=== PATIENT | male | born 1950 | race Caucasian/White ===

== ENCOUNTER 2021-11-24 19:45 | Emergency (ER) | payer OTHER, SELFPAY ==
--- NOTE | 2021-11-24 19:53 | XRR_ITS ---
PROCEDURE INFORMATION: Exam: XR Chest Exam date and time: 11/24/2021 7:53 PM Age: 71 years old Clinical indication: Dyspnea; Additional info: SOB TECHNIQUE: Imaging protocol: XR of the chest. Views: 1 view. COMPARISON: CT Abdomen/Pelvis Renal [id number] 05/10/2016 6:17 PM FINDINGS: Lungs: A few subtle small bilateral peripheral strandy or patchy ground-glass opacities. Pleural spaces: No significant costophrenic angle blunting. No pneumothorax. Heart/Mediastinum: Heart size is normal. Bones/joints: No acute osseous abnormality. XR/XR chest 1V portable [id number] IMPRESSION: While the lung findings can be seen with Covid 19 pneumonia they are nonspecific and can occur with a variety of infectious and noninfectious processes.
[2021-11-24 19:55] VITALS: BP 100/71; PULSE 101; RESP 22; TEMP 37.4; O2SAT 89; BMI 36.2
--- NOTE | 2021-11-24 20:33 | ECG_ITS ---
[facility] Test Date: 2021-11-24 Pat Name: Fabien Rob Department: Room: Gender: Male Healthcare Applications Analyst: : 1950 Requested By: Behzad Subramanian Order Number: [id number] Reading MD: EMIR PREEZ Measurements Intervals Flasher Rate: 102 P: -6 DE: 138 QRS: -63 QRSD: 105 T: 46 QT: 330 QTc: 431 Interpretive Statements SINUS TACHYCARDIA LEFT AXIS DEVIATION [QRS AXIS < -30] POSSIBLE ANTERIOR MYOCARDIAL INFARCTION , PROBABLY OLD [30 ms Q WAVE IN V3/V4, OR R < 0.2 mV IN V4] No previous ECG available for comparison Electronically Signed On 11-25-2021 19:51:32 [employer] by EMIR PEREZ [id number]
--- NOTE | 2021-11-24 21:37 | W.ED.SOB ---
HPI - SOB/Dyspnea General: Chief Complaint: Shortness of Breath/Dyspnea Stated Complaint: low 02 at home Time Seen by Provider: 11/24/21 21:07 Source: patient Mode of arrival: ambulatory Limitations: no limitations History of Present Illness: HPI Narrative: 71-year-old male who states he been having shortness of breath over the last week with getting much worse over the last 3 days he states he had Covid in early September and is since recovered states he has had some just overall fatigue weakness and dyspnea over the week. States it is much worse with any exertion denies any chest pain denies any cough denies any fevers patient was 88% here on room air denies any vomiting or diarrhea. Associated symptoms: Deny abdominal pain, chest pain, fever(s), nausea or vomiting Review of Systems Const: Denies: fever(s), chills, body aches or change in appetite Eyes: Denies: blurry vision or eye discomfort ENMT: Denies: throat pain or dental pain Card: Denies: chest pain Resp: Reports: dyspnea GI: Denies: abdominal pain, nausea, vomiting or diarrhea : Denies: dysuria Musc: Denies: neck pain or back pain Skin/Breast: Denies: rash Neuro: Denies: headache(s) Psych: Denies: depression Neel/Lymph: Denies: easy bruising All/Imm: Denies: urticaria Physical Exam Const: COMMON NORMALS: no acute distress, patient oriented x3 and healthy appearing HENMT: COMMON NORMALS: normocephalic and atraumatic HEAD & SCALP: normocephalic and atraumatic Eye: COMMON NORMALS: Equal, round and reactive pupils present and EOMs intact bilaterally PUPIL: Yes Equal, round and reactive pupils present Neck/C-Spine: COMMON NORMALS: full ROM and supple Chest: COMMONS NORMALS: normal inspection of the chest and normal palpation of entire chest wall Resp: COMMON NORMALS: normal respiratory effort, No retractions and No use of accessory muscles AUSCULTATION: rales Cardio: COMMON NORMALS: regular rate, regular rhythm and No murmurs present (Cardio) RATE: regular rate RHYTHM: regular rhythm GI: COMMON NORMALS: Normal to inspection, nondistended, normoactive bowel sounds present, Soft to palpation, non-tender and no masses PALPATION: Yes Soft to palpation Extremity: COMMON NORMALS: normal to inspection and full ROM Neuro: COMMON NORMALS: patient oriented x3, moves all extremities and no focal motor deficits Psych: COMMON NORMALS: mental status grossly normal, Normal thought process present and cooperative THOUGHT PROCESS: Normal thought process present Skin: COMMON NORMALS: no rashes or lesions noted and no wounds GENERAL SKIN EXAM: no rashes or lesions noted Course Vital Signs: Vital signs: Vital Signs Temperature 99.3 F 11/24/21 19:55 Pulse Rate 94 11/24/21 22:50 Respiratory Rate 16 11/24/21 22:45 Blood Pressure 100/71 11/24/21 19:55 Pulse Oximetry 90 11/24/21 22:45 MDM - SOB/Dyspnea Medical Decision Making Patient presents here with dyspnea likely Covid related we will start him on antibiotics x-ray does show pneumonia could be post Covid pneumonia no signs of blood clot. Place him on 2 L at oxygen at home and doxycycline he is to follow-up his PCP and return if worsening he understands agrees to plan. Lab Data : 11/24/21 21:40 11/24/21 21:40 Labs/Radiology: Radiology Impressions Chest X-Ray 11/24/21 19:53 IMPRESSION: While the lung findings can be seen with Covid 19 pneumonia they are nonspecific and can occur with a variety of infectious and noninfectious processes. Chest CTA 11/24/21 22:06 IMPRESSION: 1. No evidence of pulmonary embolism. 2. Scattered mild bilateral patchy multifocal ground-glass opacities. Findings are consistent with commonly reported imaging features of Covid-19 pneumonia. Other processes such as influenza pneumonia, organizing pneumonia, drug toxicity and connective tissue disease can have a similar appearance. 3. Atherosclerotic vascular disease including coronary artery disease. Laboratory Results WBC 5.8 10^3/uL (4.0-10.0) 11/24/21 21:40 RBC 5.65 10^6/uL (4.1-5.3) H 11/24/21 21:40 Hgb 16.7 g/dL (11.7-16.6) H 11/24/21 21:40 Hct 49.9 % (42.0-52.0) 11/24/21 21:40 MCV 88.3 fl (80-94) 11/24/21 21:40 MCH 29.6 pg (28.0-34.0) 11/24/21 21:40 MCHC 33.5 g/dL (30.0-36.0) 11/24/21 21:40 RDW 13.2 % (12.1-15.1) 11/24/21 21:40 Plt Count 177 10^3/cmm (130-400) 11/24/21 21:40 MPV 11.1 fL (7.4-10.4) H 11/24/21 21:40 Neut % (Auto) 75.9 % 11/24/21 21:40 Lymph % (Auto) 13.6 % 11/24/21 21:40 Hickman % (Auto) 9.7 % 11/24/21 21:40 Eos % (Auto) 0.2 % 11/24/21 21:40 Baso % (Auto) 0.3 % 11/24/21 21:40 Neut # (Auto) 4.39 10^3/uL (1.8-7.7) 11/24/21 21:40 Lymph # (Auto) 0.8 10^3/uL (0.8-4.8) 11/24/21 21:40 Hickman # (Auto) 0.6 10^3/uL (0.2-0.9) 11/24/21 21:40 Eos # (Auto) 0.0 10^3/uL (0.0-0.8) 11/24/21 21:40 Baso # (Auto) 0.0 10^3/uL (0.0-0.1) 11/24/21 21:40 Nucleated RBC % (auto) 0 % 11/24/21 21:40 Nucleated RBCs # 0.0 /100WBC 11/24/21 21:40 PT 13.60 SECONDS (12.1-14.9) 11/24/21 21:40 INR 1.01 (0.8-1.2) 11/24/21 21:40 D-Dimer 1.05 ug/mIFEU (0-0.59) H 11/24/21 21:40 Sodium 131 mmol/L (136-145) L 11/24/21 21:40 Potassium 3.4 mmol/L (3.5-5.1) L 11/24/21 21:40 Chloride 88 mmol/L (98-107) L 11/24/21 21:40 Carbon Dioxide 29 mmol/L (22-29) 11/24/21 21:40 Anion Gap 17.4 (5-19) 11/24/21 21:40 BUN 23 mg/dL (8-23) 11/24/21 21:40 Creatinine 1.5 mg/dL (0.7-1.2) H 11/24/21 21:40 GFR Calculation Not Reportable 11/24/21 21:40 Glucose 119 mg/dL (65-115) H 11/24/21 21:40 Calculated Osmolality 277 mOsm/kg (285-295) L 11/24/21 21:40 Calcium 8.3 mg/dL (8.5-10.5) L 11/24/21 21:40 Total Bilirubin 0.5 mg/dL (0.15-1.2) 11/24/21 21:40 AST 45 U/L (0-40) H 11/24/21 21:40 ALT 41 U/L (0-41) 11/24/21 21:40 Alkaline Phosphatase 62 IU/L (40-130) 11/24/21 21:40 NT-Pro-B Natriuret Pep 922 pg/mL (0-125) H 11/24/21 21:40 Total Protein 7.7 g/dL (6.6-8.7) 11/24/21 21:40 Albumin 4.0 g/dL (3.5-5.2) 11/24/21 21:40 Globulin 3.7 g/dL (1.3-4.6) 11/24/21 21:40 SARS-CoV-2 Ag (Rapid) Negative (Negative) 11/24/21 21:[address] Chest: I personally reviewed and interpreted this imaging study as follows: Radiologist's impression: IMPRESSION: 1. No evidence of pulmonary embolism. 2. Scattered mild bilateral patchy multifocal ground-glass opacities. Findings are consistent with commonly reported imaging features of Covid-19 pneumonia. Other processes such as influenza pneumonia, organizing pneumonia, drug toxicity and connective tissue disease can have a similar appearance. 3. Atherosclerotic vascular disease including coronary artery disease. Discharge Plan Discharge Patient Disposition: Home Clinical Impression: Pneumonia, COVID-19 Condition: Stable Prescriptions: New doxycycline hyclate 100 mg tablet 100 mg PO BID 7 Days Qty: 14 0RF Discharge Orders: Discharge ED (Routine); Ordered 11/24/21 Ordered By: Behzad Subramanian Other Ambulatory Orders: DME: Oxygen (Order) Location: None Selected Ordered By: Behzad Subramanian Referrals: Papo Ramirez DO [Primary Care Provider] - Discharge Diet: Advance as tolerated Discharge Activity: Resume usual activity Patient Instructions: COVID-19 (Coronavirus Disease 2019) (ED) Coding Level of Care Code ED Home Day Care Provider for Chg Fwd Exam Comprehensive
[2021-11-24 21:46] LABS: Basophils % 0.3 %; Eosinophils % 0.2 %; Hematocrit 49.9 % (42.0-52.0); Hemoglobin 16.7 g/dL (11.7-16.6); Lymphocytes # 0.8 10^3/uL (0.8-4.8); Lymphocytes % 13.6 %; Mean Corpuscular HGB Conc 33.5 g/dL (30.0-36.0); Mean Corpuscular Hemoglobin 29.6 pg (28.0-34.0); Mean Corpuscular Volume 88.3 fl (80-94); Mean Platelet Volume 11.1 fL (7.4-10.4); Monocytes # 0.6 10^3/uL (0.2-0.9); Monocytes % 9.7 %; Neutrophils # 4.39 10^3/uL (1.8-7.7); Neutrophils % 75.9 %; Nucleated Red Blood Cells % 0 %; Platelet Count 177 10^3/cmm (130-400); Red Blood Count 5.65 10^6/uL (4.1-5.3); Red Cell Distribution Width 13.2 % (12.1-15.1); White Blood Count 5.8 10^3/uL (4.0-10.0)
[2021-11-24 22:02] LABS: INR 1.01 (0.8-1.2)
[2021-11-24 22:04] LABS: D Dimer 1.05 ug/mIFEU (0-0.59)
[2021-11-24 22:05] LABS: SARS Covid-2 Antigen Negative (Negative)
--- NOTE | 2021-11-24 22:06 | CTR_ITS ---
PROCEDURE INFORMATION: Exam: CTA Chest With Contrast Exam date and time: 11/24/2021 10:06 PM Age: 71 years old Clinical indication: Shortness of breath; Patient HX: C/O SOB x 1 week PT is 6 weeks post covid TECHNIQUE: Imaging protocol: Computed tomographic angiography of the chest with contrast. 3D rendering (Not supervised by radiologist): MIP and/or 3D reconstructed images were created by the technologist. Radiation optimization: All CT scans at this facility use at least one of these dose optimization techniques: automated exposure control; mA and/or kV adjustment per patient size (includes targeted exams where dose is matched to clinical indication); or iterative reconstruction. Contrast material: VISI 320; Contrast volume: 66 ml; Contrast route: INTRAVENOUS (IV); COMPARISON: CR (CHEST, ) 11/24/2021 9:27 PM RADIATION DOSE METRICS: Total DLP (mGy-cm): 535.53 FINDINGS: Pulmonary arteries: No vascular intraluminal filling defects to suggest pulmonary embolism. Aorta: Atherosclerotic tortuosity of the thoracic aorta. No aortic aneurysm or dissection. Lungs: Scattered mild bilateral patchy multifocal ground-glass opacities. Small peripheral left upper lobe calcified granuloma. Incidental small 1.6 cm posterosuperior left hemithorax subcutaneous cyst. Pleural spaces: Unremarkable. No pneumothorax. No pleural effusion. Heart: Heart size is normal. Mild coronary artery calcifications. Lymph nodes: No enlarged lymph nodes. Bones/joints: Thoracic spondylosis and degenerative bony changes. Soft tissues: See Lungs finding. CT/CT angio chest PE protcl [id number] IMPRESSION: 1. No evidence of pulmonary embolism. 2. Scattered mild bilateral patchy multifocal ground-glass opacities. Findings are consistent with commonly reported imaging features of Covid-19 pneumonia. Other processes such as influenza pneumonia, organizing pneumonia, drug toxicity and connective tissue disease can have a similar appearance. 3. Atherosclerotic vascular disease including coronary artery disease.
[2021-11-24 22:11] LABS: Slide Review Slide Review Perform
[2021-11-24 22:18] LABS: Alanine Aminotransferase 41 U/L (0-41); Alkaline Phosphatase 62 IU/L (40-130); Anion Gap 17.4 (5-19); Aspartate Amino Transferase 45 U/L (0-40); Blood Urea Nitrogen 23 mg/dL (8-23); Calcium 8.3 mg/dL (8.5-10.5); Carbon Dioxide 29 mmol/L (22-29); Chloride 88 mmol/L (98-107); Globulin 3.7 g/dL (1.3-4.6); Glucose 119 mg/dL (65-115); NT Pro B Type Natriuretic Pept 922 pg/mL (0-125); Osmolality Calculated 277 mOsm/kg (285-295); Potassium 3.4 mmol/L (3.5-5.1); Sodium 131 mmol/L (136-145); Total Bilirubin 0.5 mg/dL (0.15-1.2); Total Protein 7.7 g/dL (6.6-8.7)
[2021-11-24 22:25] VITALS: O2SAT 88; O2SAT 89
[2021-11-24 22:45] VITALS: PULSE 96; RESP 16; O2SAT 90
[2021-11-24] MEDS: ipratropium-albuterol 3 mL Neb INHALATION (22:45)
[2021-11-24] MEDS: iodixanol 320 mg/mL 100mL Btl IV (22:49)
[2021-11-24 22:50] VITALS: PULSE 94
[2021-11-25] MEDS: dexamethasone 10 mg/mL INJ IVP (00:08)
[2021-11-25] MEDS: ketorolac 30 mg/mL INJ 15 MG IVP (00:08)
[2021-11-25 00:09] VITALS: BP 116/74; PULSE 84; RESP 18; O2SAT 93
[2021-12-01 16:00] LABS: ABG PCO2 40.1 mmHg (35-45); ABG PH Result 7.45 (7.35-7.45); Arterial Blood Gas Hematocrit 50.1 % (42-52); Base Excess ABG 3.6 mmol/L (-2.0-2.0); Blood Gas Allen Test Pos; Blood Gas Sample Site Radial, right; Blood Gas Sample Type Arterial; Carboxyhemoglobin 0.5 %THgb (0.4-20.1); HCO3 ABG 27.9 mmol/L (22-26); HGB O2 Sat 96.2 % (95-100); Methemoglobin 0.7 % (0.4-1.5); Oxygen Device NC; PO2 ABG 94.7 mmHg (80.0-100.0); Total Hemoglobin 16.3 g/dL (14-18)
== END 2021-11-25 00:10 | disposition home or self-care (01) ==
PROVIDERS: Emergency Provider Emergency Medicine; PCP Emergency Medicine Emergency Medical Services
DX: U07.1 COVID-19 (principal); J12.82 Pneumonia due to coronavirus disease 2019
CPT/HCPCS: 36600; 71045; 71275; 80053; 82805; 83880; 85025; 85378; 85610; 87426; 93005; 94640; 96374; 96375; 99283; J1100; J1885; Q9967

== ENCOUNTER 2021-11-26 21:16 | Inpatient (IN) | payer OTHER, SELFPAY ==
--- NOTE | 2021-11-26 21:18 | XRR_ITS ---
PROCEDURE INFORMATION: Exam: XR Chest Exam date and time: 11/26/2021 9:18 PM Age: 71 years old Clinical indication: Shortness of breath; Additional info: SOB TECHNIQUE: Imaging protocol: XR of the chest. Views: 1 view. COMPARISON: CR (CHEST, ) 11/24/2021 9:27 PM FINDINGS: Lungs: Mild anterior segment right upper lobe pneumonia with [id number] left mid lung field pneumonia. Pleural spaces: Unremarkable. No pleural effusion. No pneumothorax. Heart/Mediastinum: Unremarkable. No cardiomegaly. Bones/joints: Unremarkable. XR/XR chest 1V portable [id number] IMPRESSION: Mild anterior segment right upper lobe pneumonia with [id number]-lxeaqkjg left mid lung field pneumonia.
[2021-11-26 21:31] VITALS: BP 172/74; PULSE 89; RESP 22; TEMP 37.8; O2SAT 86
[2021-11-26] MEDS: dexamethasone 10 mg/mL INJ IVP (21:59)
--- NOTE | 2021-11-26 22:04 | ED_ITS ---
HPI - COVID General: Chief Complaint: COVID symptoms Stated Complaint: SOB on Oxygen Time Seen by Provider: 11/26/21 21:39 Source: patient Mode of arrival: ambulatory Limitations: no limitations Triage information: Has fever, cough or shortness of breath . No known COVID + exposure last 14 days History of Present Illness: 71-year-old male who states that he had Covid the first week of October I did see him 2 days ago for increasing cough fever and shortness of breath. X-ray is consistent with a pneumonia likely Covid pneumonia also get a CT that showed the same no signs of pulmonary embolism. I did start him on 2 L of oxygen along with antibiotics he states that he had increasing shortness of breath especially throughout the day today he has had to increase his oxygen up to 5 L. He is requiring 5 L here as well. COVID 19 common symptoms: positive fever(s), chills, non-productive cough, dyspnea and body aches; negative headache(s), throat pain, nausea, vomiting or diarrhea COVID 19 other sytmptoms: negative chest pain COVID Results: SARS-CoV-2 Antigen (Rapid) Negative (Negative) 11/24/21 21:40 11/24/21 Review of Systems Const: Reports: fever(s), chills and body aches; Denies: change in appetite Eyes: Denies: blurry vision or eye discomfort ENMT: Denies: throat pain or dental pain Card: Denies: chest pain Resp: Reports: dyspnea and non-productive cough GI: Denies: abdominal pain, nausea, vomiting or diarrhea : Denies: dysuria Musc: Denies: neck pain or back pain Skin/Breast: Denies: rash Neuro: Denies: headache(s) Psych: Denies: depression Neel/Lymph: Denies: easy bruising All/Imm: Denies: urticaria PFSH ED PFSH: Medical History (Updated 11/27/21 @ 01:53 by Behzad Subramanian MD) Pneumonia Social History (Updated 11/26/21 @ 22:06 by Behzad Subramanian MD) Substance/Drug Use: never Physical Exam Const: COMMON NORMALS: patient oriented x3 and healthy appearing GENERAL APPEARANCE: in distress and ill appearing HENMT: COMMON NORMALS: normocephalic and atraumatic HEAD & SCALP: normocephalic and atraumatic Eye: COMMON NORMALS: Equal, round and reactive pupils present and EOMs intact bilaterally PUPIL: Yes Equal, round and reactive pupils present Neck/C-Spine: COMMON NORMALS: full ROM and supple Chest: COMMONS NORMALS: normal inspection of the chest and normal palpation of entire chest wall Resp: EFFORT & INSPECTION: Yes tachypneic, Yes respiratory distress, Yes labored and Yes audible wheezes Cardio: COMMON NORMALS: regular rate, regular rhythm and No murmurs present (Cardio) RATE: regular rate RHYTHM: regular rhythm GI: COMMON NORMALS: Normal to inspection, nondistended, normoactive bowel s ounds present, Soft to palpation, non-tender and no masses PALPATION: Yes Soft to palpation Extremity: COMMON NORMALS: normal to inspection and full ROM Neuro: COMMON NORMALS: patient oriented x3, moves all extremities and no focal motor deficits Psych: COMMON NORMALS: mental status grossly normal, Normal thought process present and cooperative THOUGHT PROCESS: Normal thought process present Skin: COMMON NORMALS: no rashes or lesions noted and no wounds GENERAL SKIN EXAM: no rashes or lesions noted Course Vital Signs: Vital signs: Vital Signs Temperature 100.1 F H 11/26/21 21:31 Pulse Rate 89 11/26/21 21:31 Respiratory Rate 22 H 11/26/21 21:31 Blood Pressure 172/74 11/26/21 21:31 Pulse Oximetry 86 L 11/26/21 21:31 MDM - COVID Medical Decision Making Patient presents here with shortness of breath x-ray shows pneumonia he did have Covid earlier in the month roughly 4 weeks ago. I did see him 2 days ago and placed him on 2 L of oxygen at home and doxycycline he is worse and is requiring 5 L currently spoke to hospitalist will admit on IV antibiotics. Lab Data : 11/26/21 21:50 11/26/21 22:35 Radiology Impressions Chest X-Ray 11/26/21 21:18 IMPRESSION: Mild anterior segment right upper lobe pneumonia with iptj-[id number] left mid lung field pneumonia. Laboratory Results WBC 8.1 10^3/uL (4.0-10.0) 11/26/21 21:50 RBC 5.33 10^6/uL (4.1-5.3) H 11/26/21 21:50 Hgb 15.6 g/dL (11.7-16.6) 11/26/21 21:50 Hct 47.4 % (42.0-52.0) 11/26/21 21:50 MCV 88.9 fl (80-94) 11/26/21 21:50 MCH 29.3 pg (28.0-34.0) 11/26/21 21:50 MCHC 32.9 g/dL (30.0-36.0) 11/26/21 21:50 RDW 13.2 % (12.1-15.1) 11/26/21 21:50 Plt Count 222 10^3/cmm (130-400) 11/26/21 21:50 MPV 11.3 fL (7.4-10.4) H 11/26/21 21:50 Neut % (Auto) 86.3 % 11/26/21 21:50 Lymph % (Auto) 8.5 % 11/26/21 21:50 Mcculloch % (Auto) 4.8 % 11/26/21 21:50 Eos % (Auto) 0.0 % 11/26/21 21:50 Baso % (Auto) 0.2 % 11/26/21 21:50 Neut # (Auto) 6.98 10^3/uL (1.8-7.7) 11/26/21 21:50 Lymph # (Auto) 0.7 10^3/uL (0.8-4.8) L 11/26/21 21:50 Mcculloch # (Auto) 0.4 10^3/uL (0.2-0.9) 11/26/21 21:50 Eos # (Auto) 0.0 10^3/uL (0.0-0.8) 11/26/21 21:50 Baso # (Auto) 0.0 10^3/uL (0.0-0.1) 11/26/21 21:50 Nucleated RBC % (auto) 0 % 11/26/21 21:50 Nucleated RBCs # 0.0 /100WBC 11/26/21 21:50 D-Dimer Cancelled 11/26/21 21:50 Sodium 133 mmol/L (136-145) L 11/26/21 22:35 Potassium 3.2 mmol/L (3.5-5.1) L 11/26/21 22:35 Chloride 90 mmol/L (98-107) L 11/26/21 22:35 Carbon Dioxide 28 mmol/L (22-29) 11/26/21 22:35 Anion Gap 18.2 (5-19) 11/26/21 22:35 BUN 25 mg/dL (8-23) H 11/26/21 22:35 Creatinine 1.2 mg/dL (0.7-1.2) 11/26/21 22:35 GFR Calculation Not Reportable 11/26/21 22:35 Glucose 124 mg/dL (65-115) H 11/26/21 22:35 Calculated Osmolality 282 mOsm/kg (285-295) L 11/26/21 22:35 Lactic Acid 1.5 mmol/L (0.5-2.2) 11/26/21 22:52 Calcium 8.4 mg/dL (8.5-10.5) L 11/26/21 22:35 Total Bilirubin 0.6 mg/dL (0.15-1.2) 11/26/21 22:35 AST 36 U/L (0-40) 11/26/21 22:35 ALT 29 U/L (0-41) 11/26/21 22:35 Alkaline Phosphatase 57 IU/L (40-130) 11/26/21 22:35 C-Reactive Protein 53.5 mg/L (0.0-4.9) H 11/26/21 22:35 NT-Pro-B Natriuret Pep 211 pg/mL (0-125) H 11/26/21 22:35 Total Protein 7.3 g/dL (6.6-8.7) 11/26/21 22:35 Albumin 3.6 g/dL (3.5-5.2) 11/26/21 22:35 Globulin 3.7 g/dL (1.3-4.6) 11/26/21 22:35 Procalcitonin 0.08 ng/mL (0-0.5) 11/26/21 22:35 SARS-CoV-2 Antigen (Rapid) Negative (Negative) 11/24/21 21:40 11/24/21 Discharge Plan Discharge Patient Disposition: Admitted As Inpatient Clinical Impression: Pneumonia Condition: Stable Coding Level of Care Code ED Valve Inspector for Chg Fwd Exam Comprehensive
[2021-11-26 22:08] LABS: Basophils % 0.2 %; Hematocrit 47.4 % (42.0-52.0); Hemoglobin 15.6 g/dL (11.7-16.6); Lymphocytes # 0.7 10^3/uL (0.8-4.8); Lymphocytes % 8.5 %; Mean Corpuscular HGB Conc 32.9 g/dL (30.0-36.0); Mean Corpuscular Hemoglobin 29.3 pg (28.0-34.0); Mean Corpuscular Volume 88.9 fl (80-94); Mean Platelet Volume 11.3 fL (7.4-10.4); Monocytes # 0.4 10^3/uL (0.2-0.9); Monocytes % 4.8 %; Neutrophils # 6.98 10^3/uL (1.8-7.7); Neutrophils % 86.3 %; Nucleated Red Blood Cells % 0 %; Platelet Count 222 10^3/cmm (130-400); Red Blood Count 5.33 10^6/uL (4.1-5.3); Red Cell Distribution Width 13.2 % (12.1-15.1); White Blood Count 8.1 10^3/uL (4.0-10.0)
[2021-11-26 22:20] VITALS: PULSE 84; RESP 33; O2SAT 95
[2021-11-26 23:12] LABS: NT Pro B Type Natriuretic Pept 211 pg/mL (0-125); Procalcitonin 0.08 ng/mL (0-0.5)
[2021-11-26 23:23] LABS: Alanine Aminotransferase 29 U/L (0-41); Albumin Level 3.6 g/dL (3.5-5.2); Alkaline Phosphatase 57 IU/L (40-130); Anion Gap 18.2 (5-19); Aspartate Amino Transferase 36 U/L (0-40); Blood Urea Nitrogen 25 mg/dL (8-23); C Reactive Protein 53.5 mg/L (0.0-4.9); Calcium 8.4 mg/dL (8.5-10.5); Carbon Dioxide 28 mmol/L (22-29); Chloride 90 mmol/L (98-107); Globulin 3.7 g/dL (1.3-4.6); Glucose 124 mg/dL (65-115); Osmolality Calculated 282 mOsm/kg (285-295); Potassium 3.2 mmol/L (3.5-5.1); Sodium 133 mmol/L (136-145); Total Bilirubin 0.6 mg/dL (0.15-1.2); Total Protein 7.3 g/dL (6.6-8.7)
[2021-11-26 23:25] LABS: Lactic Sepsis W/Reflex 1.5 mmol/L (0.5-2.2)
[2021-11-26] MEDS: cefTRIAXone 1,000 MG in sodium chloride 0.9% (plus) 50 ML 100 MG IV (23:38)
[2021-11-26] MEDS: azithromycin 500 MG in sodium chloride 0.9% 250 ML 250 MG IV (23:38)
[2021-11-27] VITALS (18 sets, daily range): BP systolic 99–134; BP diastolic 59–93; PULSE 63–80; RESP 17–27; TEMP 36.6; O2SAT 86–93
--- NOTE | 2021-11-27 02:36 | P.HP_ITS ---
Providers/Chief Complaint Primary Care Provider: Papo Ramirez DO Chief Complaint: SOB on Oxygen History of Present Illness Fabien Rob is a 71 year old male with no significant past medical history, he was recently diagnosed with Covid in the month of October and was recently seen in ER on 24 November for shortness of breath at that time he was discharged on 2 L home oxygen with oral doxycycline, came in today with chief complaint of Worsening shortness of breath, fever, chills, nonproductive cough, overall not feeling well, patient is poor historian, and is also hard of hearing Because of this history taking has been slightly difficult. When he came today in the ER his supplemental oxygen requirement was close to 5 L, in the ER he was also febrile with noted T-max 100.1, he was tachypneic. He was worked up for above-mentioned complaint: Pertinent imaging studies: X-ray chest: Mild anterior segment right upper lobe pneumonia with ioyt-sb-owstomlj left mid lung field pneumonia. Recent CTA chest: Has failed to show any pulmonary embolism, Scattered mild bilateral patchy multifocal ground-glass opacities. Pertinent labs: WBC 8.1, H&H 15.6 / 47.4 , plt : 222 , sodium 133, serum potassium 3.2, BUN and serum creatinine 25 / 1.2 , procalcitonin 0.08. , CRP 53.5, proBNP 211 Patient was given ceftriaxone azithromycin , dexamethasone as well as duo nebs in the ER. Review of Systems General: Reports: 10 or more systems reviewed and unremarkable except in HPI and below Const: Denies: diaphoresis Card: Denies: palpitations, edema, swelling of feet/ankles or leg pain with exertion Resp: Denies: wheezing or pain on inspiration GI: Denies: abdominal pain, nausea, vomiting, diarrhea or constipation : Denies: flank pain or difficulty urinating Musc: Denies: back pain, extremity pain or extremity swelling Neuro: Denies: headache(s), difficulty walking or confusion Medications/Allergies Home Medications Medication Instructions Recorded Confirmed Last Taken Type doxycycline hyclate 100 mg tablet 100 mg PO BID 7 Days #14 tab 11/24/21 Unknown Rx Allergies Allergy/AdvReac Type Severity Reaction Status Date / Time No Known Allergies Allergy Verified 11/24/21 19:55 PFSH Acute PFSH: Medical History Pneumonia Social History Substance/Drug Use: never Vitals/I&O/Wt Last Vital Signs Temp 100.1 F H 11/26/21 21:31 Pulse 89 11/26/21 21:31 Resp 22 H 11/26/21 21:31 BP 172/74 11/26/21 21:31 Pulse Ox 86 L 11/26/21 21:31 Weight last 48 hrs Weight 113.398 kg Physical Exam Const: COMMON NORMALS: patient oriented x3 HENMT: COMMON NORMALS: normocephalic and atraumatic HEAD & SCALP: normocephalic and atraumatic EXTERNAL EAR: Yes external ears normal Eye: COMMON NORMALS: no scleral icterus GENERAL EYE: appearance normal, both eyes and all related structures Chest: COMMONS NORMALS: normal inspection of the chest and normal palpation of entire chest wall CHEST: Yes Symmetrical chest wall rise Resp: COMMON NORMALS: normal respiratory effort, No retractions, No use of accessory muscles and clear to auscultation bilaterally EFFORT & INSPECTION: Yes symmetric chest movement AUSCULTATION: clear to auscultation bilaterally Cardio: COMMON NORMALS: regular rate, regular rhythm, S1 normal heart sound present, S2 normal heart sound present, No gallops present (Cardio), No murmurs present (Cardio), No rub (Cardio) and Peripheral pulses 2+ throughout RATE: regular rate RHYTHM: regular rhythm HEART SOUNDS: S1 normal heart sound present and S2 normal heart sound present PERIPHERAL PULSES: Peripheral pulses 2+ throughout GI: COMMON NORMALS: Normal to inspection, nondistended, normoactive bowel sounds present, Soft to palpation, non-tender, No hepatosplenomegaly present and no masses AUSCULTATION: Yes normoactive bowel sounds PALPATION: Yes Soft to palpation and Yes No hepatosplenomegaly present RECTAL EXAM: Yes deferred Extremity: COMMON NORMALS: no clubbing, cyanosis or edema and no pedal edema Neuro: COMMON NORMALS: patient oriented x3 Data : 11/26/21 21:50 11/26/21 22:35 Micro: Microbiology 11/26/21 22:10 Blood Culture - Preliminary Blood SPECIMEN COLLECTED 11/26/21 22:22 Blood Culture - Preliminary Blood SPECIMEN COLLECTED A&P Assessment and plan (1) Pneumonia: Status: Acute (2) Hypoxia: Status: Acute (3) Hypokalemia: Status: Acute Plan Assessment: #Pneumonia #Hypokalemia #Hypoxia secondary to pneumonia Plan : Follow blood culture, sputum culture Monitor x-ray chest Monitor ABG Supplemental oxygen as needed Continue cefepime Duo nebs Bacterial antigen panel Urine Legionella antigen Lovenox for DVT prophylaxis CODE STATUS: Full code Attestations Medical Necessity Statement*: Patient needs to be in hospital for management of pneumonia. Anticipated length of stay greater than 2 midnights. Coding Level of Care Code Acute Industrial Real Estate Agent for [facility] Alyd Diagnoses Pneumonia J18.9 Hypoxia R09.02 Hypokalemia E87.6
[2021-11-27] MEDS: cefepime 2,000 MG in sodium chloride 0.9% (plus) 50 ML 100 MG IV ×3 (03:00→17:58)
[2021-11-27] MEDS: enoxaparin 40 mg/0.4 mL Syringe SUBCUT (03:00)
[2021-11-27 04:19] LABS: Hemoglobin 14.3 g/dL (11.7-16.6); Lymphocytes # 0.5 10^3/uL (0.8-4.8); Lymphocytes % 6.4 %; Mean Corpuscular HGB Conc 32.5 g/dL (30.0-36.0); Mean Corpuscular Hemoglobin 29.1 pg (28.0-34.0); Mean Corpuscular Volume 89.6 fl (80-94); Monocytes # 0.3 10^3/uL (0.2-0.9); Neutrophils # 6.44 10^3/uL (1.8-7.7); Neutrophils % 89.2 %; Nucleated Red Blood Cells % 0 %; Platelet Count 204 10^3/cmm (130-400); Red Blood Count 4.91 10^6/uL (4.1-5.3); Red Cell Distribution Width 13.2 % (12.1-15.1); White Blood Count 7.2 10^3/uL (4.0-10.0)
[2021-11-27 04:53] LABS: Anion Gap 19.3 (5-19); Blood Urea Nitrogen 26 mg/dL (8-23); Calcium 8.8 mg/dL (8.5-10.5); Carbon Dioxide 26 mmol/L (22-29); Chloride 92 mmol/L (98-107); Glucose 160 mg/dL (65-115); Osmolality Calculated 286 mOsm/kg (285-295); Potassium 3.3 mmol/L (3.5-5.1); Sodium 134 mmol/L (136-145)
[2021-11-27 06:44] LABS: Slide Review Slide Review Perform
[2021-11-27] MEDS: predniSONE 20 mg Tablet 40 MG PO (08:03)
[2021-11-27] MEDS: vancomycin 1,000 MG in sodium chloride 0.9% 250 ML 250 MG IV ×2 (09:01→21:16)
[2021-11-27 09:23] LABS: ABG PCO2 43.3 mmHg (35-45); ABG PH Result 7.48 (7.35-7.45); Alveolar-Arterial Oxygen Gradi 22.8 mmHg (5-10); Arterial Blood Gas Hematocrit 44.7 % (42-52); Base Excess ABG 7.6 mmol/L (-2.0-2.0); Blood Gas Allen Test Pos; Blood Gas Operator Identificat AMH; Blood Gas Sample Site Radial, right; Blood Gas Sample Type Arterial; Carboxyhemoglobin 0.7 %THgb (0.4-20.1); HCO3 ABG 32.1 mmol/L (22-26); Ionized Calcium Level - ABG 1.1 mmol/L (1.1-1.4); Methemoglobin 0.8 % (0.4-1.5); Oxygen Device NC; Oxygen Saturation ABG 90.3; PO2 ABG 55.9 mmHg (80.0-100.0); Potassium Level - ABG 3.2 mmol/L (3.5-5.0); Total Hemoglobin 14.6 g/dL (14-18)
--- NOTE | 2021-11-27 09:59 | ECG_ITS ---
[facility] Test Date: 2021-11-27 Pat Name: Fabien Rob Department: Room: EDIP Gender: Male Head Greenskeeper: : 1950 Requested By: Behzad Subramanian Order Number: [id number] Tawny MD: Chris Farias M.D. Measurements Intervals [place] Rate: 77 P: 33 IA: 131 QRS: -40 QRSD: 110 T: 22 QT: 379 QTc: 431 Interpretive Statements SINUS RHYTHM LEFT AXIS DEVIATION [QRS AXIS < -30] PATTERN CONSISTENT WITH PULMONARY DISEASE INTERPRETATION BASED ON A DEFAULT AGE OF 40 YEARS Compared to ECG 11/24/2021 20:44:42 Sinus tachycardia no longer present Myocardial infarct finding no longer present Electronically Signed On 11-27-2021 18:36:24 DRUM STENCILER by Chris Farias M.D. [id number]
--- NOTE | 2021-11-27 12:19 | CT_ITS ---
WS: [id number] CT CHEST TECHNIQUE: Noncontrast CT of the chest with coronal and sagittal reformatted images. CLINICAL INFORMATION: pneumonia COMPARISON: CTA November 24, 2021 DLP: 982.[address] scans at [facility] use at least one of these dose optimization techniques: automated e xposure control; mA and/or kV adjustment per patient size (includes targeted exams where dose is matc hed to clinical indication); or iterative reconstruction. FINDINGS:Again seen are patchy bilateral groundglass infiltrates more prominent in the perihilar pratima ons and right greater than left upper lobes. Slight scattered groundglass infiltrates in the lung bas es left greater than right. Infiltrates have progressed compared to previous. No focal consolidation or pleural fluid. Normal caliber thoracic aorta. Aortic calcification. Coronary calcification. No mediastinal or hilar lymphadenopathy. Normal thyroid gland. No axillary lymphadenopathy. Partially visualized right renal cyst. Adrenal glands are normal. Normal GE junction. Hypertrophic ch anges thoracic spine. CT/CT chest wo con [id number] IMPRESSION: 1. Diffuse bilateral hazy groundglass infiltrates more prominent in the perihi lar regions bilaterally have progressed compared to November 24, 2021. 2. No mediastinal or hilar lymphadenopathy. Mild perihilar bronchovascular thi ckening. 3. No other significant changes compared to previous.
--- NOTE | 2021-11-27 17:40 | PC.NURSE ---
Patient arrived from ER via stretcher. Patient is alert and oriented x4. VS are all stable. Patient educated front end developer chamberlain use, safety measures, and plan of care. Nurse will continue to monitor.
--- NOTE | 2021-11-27 23:41 | PC.NURSE ---
Patient states, I was never diagnosed with COVID. I took a home COVID test and it was positive. When I came to the ER and they tested me, it was negative.
[2021-11-28] VITALS (9 sets, daily range): BP systolic 115–131; BP diastolic 62–75; PULSE 66–94; RESP 18–25; TEMP 36.6–37.1; O2SAT 88–91
[2021-11-28] MEDS: enoxaparin 40 mg/0.4 mL Syringe SUBCUT (01:17)
[2021-11-28] MEDS: cefepime 2,000 MG in sodium chloride 0.9% (plus) 50 ML 100 MG IV ×3 (01:18→18:11)
[2021-11-28 03:41] LABS: Basophils % 0.1 %; Hematocrit 47.6 % (42.0-52.0); Hemoglobin 15.4 g/dL (11.7-16.6); Lymphocytes # 0.7 10^3/uL (0.8-4.8); Lymphocytes % 7.1 %; Mean Corpuscular HGB Conc 32.4 g/dL (30.0-36.0); Mean Corpuscular Hemoglobin 29.3 pg (28.0-34.0); Mean Corpuscular Volume 90.5 fl (80-94); Mean Platelet Volume 12.5 fL (7.4-10.4); Monocytes # 0.5 10^3/uL (0.2-0.9); Monocytes % 5.2 %; Neutrophils # 8.28 10^3/uL (1.8-7.7); Neutrophils % 87.1 %; Nucleated Red Blood Cells % 0 %; Platelet Count 185 10^3/cmm (130-400); Red Blood Count 5.26 10^6/uL (4.1-5.3); Red Cell Distribution Width 13.2 % (12.1-15.1); White Blood Count 9.5 10^3/uL (4.0-10.0)
[2021-11-28 07:41] LABS: Blood Urea Nitrogen 23 mg/dL (8-23); Calcium 9.1 mg/dL (8.5-10.5); Carbon Dioxide 24 mmol/L (22-29); Chloride 94 mmol/L (98-107); Glucose 119 mg/dL (65-115); Osmolality Calculated 285 mOsm/kg (285-295); Sodium 135 mmol/L (136-145)
[2021-11-28 07:43] LABS: Anion Gap 20.6 (5-19); Potassium 3.6 mmol/L (3.5-5.1)
[2021-11-28] MEDS: predniSONE 20 mg Tablet 40 MG PO (08:11)
[2021-11-28] MEDS: vancomycin 1,000 MG in sodium chloride 0.9% 250 ML 250 MG IV (08:12)
--- NOTE | 2021-11-28 09:35 | PC.CHAP ---
Pastoral Care Encounter/Spiritual Assessment Type of Contact [] Declined quill layer visit [] Patient/Family/Request visit [] Outpatient visit [] Follow-up visit [] Physician referral [] Code/Alert [x] Routine visit [] Staff referral [] Actively dying [x] Patient sleeping [] Family support [] [] Out of room [] Palliative care [] [] Receiving care in room [] Pre-surgical visit [] Trauma [] Long length of stay [] ICU visit [] Other: Relational/Emotional Strength [] Patient feels connected with others/family/visitors/staff [] Distress [] Loneliness/isolation [] Abandonment Spirituality of Patient [] Person of Elise [] Attends Methodist of their Elise [] Believes in Prayer [] Reads Bible or Roman Catholic materials [] There are Spiritual issues to be addressed 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 Interventions [x] Prayer [] Active listening [] Non-anxious presence [] Spiritual/emotional support [] Crisis/trauma care [] Spiritual counseling [] Bereavement support [] Provided bereavement packet [] Provided Bible/devotional materials [] Provided toy/stuffed animal, coloring book to patient or family member [] Provided Communion [] Anointing/[place] [] Salvation [x] Completed spiritual assessment [] Other: Impact on Illness or Injury [] Angry [] Fearful [] Anxious [] Often cries [] Exhaustion [] Unable to work [] Unable to attend restorationist [] Unable to walk/stand [] Unable to read [] Unable to drive [] Unable to eat/drink [] Unable to sleep [] Unable to be with family [] Patient intubated [] Other: Summary Time spent with patient
--- NOTE | 2021-11-28 10:39 | P.PN_ITS ---
Subjective Subjective: Interval history: Saturating well on 6 L nasal cannula, no active chest pain or shortness of breath He was able to get out of bed and go to the bathroom Requested PT evaluation, patient is stating that his wanted to take care of him at home, caser shoe parts updated to see if he would qualify for home health services Vitals/I&O/Wt Last Vital Signs Temp 97.8 F 11/28/21 07:18 Pulse 85 11/28/21 10:18 Resp 20 H 11/28/21 10:18 BP 115/62 11/28/21 07:18 Pulse Ox 91 11/28/21 10:18 11/27/21 11/28/21 11/28/21 22:59 06:59 14:59 Intake Total 300 / 600 150 / 750 250 / 250 Output Total 250 / 250 Balance 300 / 600 -100 / 500 250 / 250 Weight last 48 hrs Weight 116.483 kg Weight 113.398 kg Physical Exam Narrative: EXAM NARRATIVE: Patient was sitting in his bed S1, S2 Abdomen soft and distended Nonfocal neuro exam EOMI, PERRLA Doing well on 6 L nasal cannula Data : 11/28/21 02:12 11/28/21 07:12 Micro: Microbiology 11/27/21 11:55 Bacterial Antigens - Final Urine,Clean Catch 11/26/21 22:10 Blood Culture - Preliminary Blood NEGATIVE TO DATE 11/26/21 22:22 Blood Culture - Preliminary Blood NEGATIVE TO DATE 11/27/21 11:55 Legionella Urinary Antigen - Final Urine,Clean Catch 11/27/21 08:40 MRSA Culture - Final Nose A&P Assessment and plan (1) Hypokalemia: Status: Acute (2) Hypoxia: Status: Acute (3) Pneumonia: Status: Acute (4) COVID-19: Status: Acute Plan Acute on chronic hypoxia Superimposed bacterial infection Recent COVID-[address] chest showing progression of groundglass infiltrate hilar lymphadenopathy We will add IV steroids continue antibiotics PT evaluation today Might need home health services at the time of discharge I will give him low-dose Lasix on daily basis as well along IV steroids Full code Regular diet DVT prophylaxis Lovenox Attestations Medical Necessity Statement*: Discharge tomorrow if stable Time Spent in Patient Care: 15min Coding Level of Care Code Acute Farmworker Bulbs for g Landon Diagnoses Hypokalemia E87.6 Hypoxia R09.02 Pneumonia J18.9 COVID-19 U07.1
[2021-11-28] MEDS: potassium chloride ER 20 mEq Tablet 40 MEQ PO (12:21)
--- NOTE | 2021-11-28 19:39 | PC.NURSE ---
Shift Note Frequent safety and comfort rounds continue. Orders and/or nursing care completed as indicated. Patient monitored for response to intervention and treatment(s). Education provided includes IV solu-medrol, PT eval and treat and oxygen therapy. Patient and/or communications representative verbalizes understanding. Will continue to monitor. and pt stated they are not able to take care of him when he is requiring 6 L of oxygen. is concern that he will easily decompensate. Their home oxygen only goes up to 4 L per statement. She was wondering if we can get him in a convalescent hospital. Pt [facility] a [facility]. Informed Case mgt and doctor regarding their concerns.
[2021-11-28 20:20] LABS: Vancomycin Trough 7.3 ug/mL (10-15)
--- NOTE | 2021-11-28 20:31 | PC.PHAR ---
Vancomycin trough on dosage of 1000mg IVPB every 12 hours is 7.3. Dosage is increased to 1250mg IVPB every 12 hours with a trough to be obtained before the fourth 1250mg dose to determine if further adjustment is needed.
[2021-11-28] MEDS: vancomycin 1,250 MG/250 ML PIGGYBACK 250 MG IV (21:35)
[2021-11-29] VITALS (21 sets, daily range): BP systolic 115–139; BP diastolic 68–78; PULSE 65–86; RESP 16–27; TEMP 36.7; O2SAT 84–92
[2021-11-29] MEDS: enoxaparin 40 mg/0.4 mL Syringe SUBCUT (01:28)
[2021-11-29] MEDS: cefepime 2,000 MG in sodium chloride 0.9% (plus) 50 ML 100 MG IV ×3 (01:29→18:16)
[2021-11-29 03:36] LABS: Basophils % 0.1 %; Hematocrit 43.5 % (42.0-52.0); Hemoglobin 13.9 g/dL (11.7-16.6); Lymphocytes # 0.4 10^3/uL (0.8-4.8); Lymphocytes % 4.3 %; Mean Corpuscular Hemoglobin 28.9 pg (28.0-34.0); Mean Corpuscular Volume 90.4 fl (80-94); Mean Platelet Volume 10.8 fL (7.4-10.4); Monocytes # 0.4 10^3/uL (0.2-0.9); Monocytes % 4.4 %; Neutrophils # 8.77 10^3/uL (1.8-7.7); Neutrophils % 90.7 %; Nucleated Red Blood Cells % 0 %; Platelet Count 253 10^3/cmm (130-400); Red Blood Count 4.81 10^6/uL (4.1-5.3); Red Cell Distribution Width 13.2 % (12.1-15.1); White Blood Count 9.7 10^3/uL (4.0-10.0)
[2021-11-29 04:05] LABS: Anion Gap 15.2 (5-19); Blood Urea Nitrogen 23 mg/dL (8-23); Calcium 8.1 mg/dL (8.5-10.5); Carbon Dioxide 27 mmol/L (22-29); Chloride 101 mmol/L (98-107); Glucose 151 mg/dL (65-115); Osmolality Calculated 295 mOsm/kg (285-295); Potassium 4.2 mmol/L (3.5-5.1); Sodium 139 mmol/L (136-145)
[2021-11-29 04:13] LABS: Procalcitonin 0.05 ng/mL (0-0.5)
--- NOTE | 2021-11-29 06:03 | PC.NURSE ---
Patient got up to bedside commode. Patient's oxygen saturation dropped to 70s. Patient got back to bed. Oxygen saturation very slowly came back up. After about 15 minutes, patient's oxygen saturation came back up to 89 percent on 6 L NC. RT notified.
--- NOTE | 2021-11-29 06:08 | PC.NURSE ---
Patient got up to bedside commode. Patient's oxygen saturation dropped to 70s. Patient got back to bed. After about 15 minutes of laying in bed, patient oxygen only 80 percent on 6 liters nasal cannula. RT notified. RT placed patient on high flow nasal cannula. Please see RT documentation.
--- NOTE | 2021-11-29 09:11 | PC.PT ---
Pt not seen per nursing. Pt is on 9 liters of O2 and is at 82-85% SaO2 and when he talks it goes down to 79%. Will try again tomorrow. Pt is aggreable and does not want to be seen since he is so SOB.
--- NOTE | 2021-11-29 09:20 | P.PN_ITS ---
Subjective Subjective: Interval history: Patient this morning is requiring 9 L of oxygen However he is endorsing feeling better, he had 1 bowel movement, he is able to get out of bed, Is also recommend has increased since yesterday CTA chest rule out PE No leukocytosis, no febrile episodes He got short of breath on mild exertion Vitals/I&O/Wt Last Vital Signs Temp 98.1 F 11/29/21 04:00 Pulse 68 11/29/21 06:06 Resp 18 11/29/21 06:06 BP 115/74 11/29/21 04:00 Pulse Ox 90 11/29/21 06:06 11/28/21 11/29/21 11/29/21 22:59 06:59 14:59 Intake Total 486 / 986 500 / 1486 Output Total 1000 / 1000 Balance -514 / -14 500 / 486 Weight last 48 hrs Weight 116.483 kg Physical Exam Narrative: EXAM NARRATIVE: This morning patient was feeling better, laying supine On 9 L nasal cannula Abdomen soft distended with obesity Bowel sound present Nonfocal neuro exam Pneumococcal PERRLA Awake and alert appropriate mood and affect Data : 11/29/21 03:19 11/29/21 03:19 Micro: Microbiology 11/27/21 11:55 Bacterial Antigens - Final Urine,Clean Catch A&P Assessment and plan (1) COVID-19: Status: Acute (2) Pneumonia: Status: Acute (3) Hypoxia: Status: Acute (4) Hypokalemia: Status: Acute Plan Acute on chronic hypoxia Hypoxia has worsened to 9 L Getting short of breath on mild exertion CT rule out PE, CT chest showing worsening groundglass opacities Afebrile No worsening of leukocytosis I am going to obtain chest x-ray and ABG on stat basis Clinically patient does endorse feeling better, he had 1 bowel movement, laying supine without any active shortness of breath or chest pain Awake and alert Procalcitonin unremarkable Currently he is on cefepime DVT prophylaxis Lovenox Continue IV steroids Potassium repleted for hypokalemia Discontinue vancomycin, MRSA PCR negative Attestations Medical Necessity Statement*: Not ready to be discharged, continue medical management Time Spent in Patient Care: 15 Coding Level of Care Code Acute 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
--- NOTE | 2021-11-29 09:23 | XR_ITS ---
WS: [id number] PORTABLE CHEST HISTORY: Hypoxia worsening COMPARISON: 11/26/2021 Continued bilateral scattered opacifications. Mild progression of opacifications. The pneumonia poste rior to the LEFT heart and in the lingula has slightly progressed. Mild progression of opacifications in the central RIGHT lung. No pleural effusion or pneumothorax. Cardiac size: Mildly enlarged cardiac silhouette. Mediastinum/Aorta: Mild atherosclerosis aorta. No osseous abnormality seen. XR/XR chest 1V portable [id number] IMPRESSION: Mild progression of bilateral pulmonary opacifications/pneumonia since 11/26/2021 .
[2021-11-29] MEDS: ipratropium-albuterol 3 mL Neb INHALATION ×3 (09:37→22:25)
[2021-11-29] MEDS: potassium chloride ER 20 mEq Tablet 40 MEQ PO (09:43)
[2021-11-29] MEDS: FUROsemide 20 mg Tablet PO (09:44)
[2021-11-29 10:06] LABS: ABG PCO2 38.8 mmHg (35-45); ABG PH Result 7.51 (7.35-7.45); Arterial Blood Gas Hematocrit 44.4 % (42-52); Base Excess ABG 7.4 mmol/L (-2.0-2.0); Blood Gas Allen Test Pos; Blood Gas Sample Type Arterial; PO2 ABG 43.9 mmHg (80.0-100.0)
[2021-11-29 10:07] LABS: Blood Gas Operator Identificat BROMA; Blood Gas Sample Site Radial, right; Oxygen Device NC
--- NOTE | 2021-11-29 10:34 | USCV_ITS ---
Darron Fabien Age: 71 Gender: M : 1950 Exam Date: 11/29/2021 11:12 Ordering Phys: Catherine Carmona MD Technologist: LEAH Exam Location: [facility] [place] Indication: CHF BP: 115 / 74 HR: 82 Rhythm: Sinus Technical Quality: Suboptimal MEASUREMENTS (Male / Female) Normal Values 2D ECHO LV Diastolic Diameter PLAX 4.7 cm 4.2 - 5.9 / 3.9 - 5.3 cm LV Systolic Diameter PLAX 2.2 cm IVS Diastolic Thickness 1.0 cm 0.6 - 1.0 / 0.6 - 0.9 cm IVS Systolic Thickness 1.2 cm LVPW Diastolic Thickness 1.3 cm 0.6 - 1.0 / 0.6 - 0.9 cm LVPW Systolic Thickness 1.4 cm LVOT Diameter 2.1 cm LV Ejection Fraction 2D Teich 76.6 % LV Ejection Fraction MOD 2C 54.4 % LV Ejection Fraction 2C AL 54.3 % LA Diameter 3.8 cm Aorta at Sinotubular Diameter 2.9 cm M-MODE Aortic Annulus Diameter 3.8 cm LA Ao Ratio MM 1.1 MV E Point Septal Separation 1.8 cm DOPPLER AV Peak Velocity 222.0 cm/s LVOT Peak Velocity 97.0 cm/s AV Area Cont Eq vti 1.8 cm squared AV Area Cont Eq pk 1.5 cm squared MV Area PHT 5.0 cm squared Mitral E to A Ratio 0.7 MV E' Velocity 75.0 cm/s TR Peak Velocity 230.0 cm/s TR Peak Gradient 21.2 mmHg TV Peak E Velocity 118.0 cm/s Right Atrial Pressure 3.0 mmHg Pulmonary Artery Systolic Pressu 24.2 mmHg FINDINGS Left Ventricle Normal left ventricular size, systolic function and wall thickness, with no regional wall motion abnormalities. Left ventricular ejection fraction is estimated at 60 %. Right Ventricle Normal right ventricular size and systolic function. Right ventricular systolic pressure 24.2 mmHg. Right Atrium Right atrium not well visualized. Left Atrium Left atrium not well visualized. Normal left atrial size. Mitral Valve Structurally normal mitral valve. No mitral valve stenosis. No significant mitral valve regurgitation. Aortic Valve Structurally normal trileaflet aortic valve. No aortic valve stenosis. No aortic valve regurgitation. Tricuspid Valve Structurally normal tricuspid valve. Trace tricuspid valve regurgitation. Pulmonic Valve Pulmonic valve not well visualized. No pulmonary valve stenosis. No significant pulmonary valve regurgitation. Pericardium No pericardial effusion. Aorta Normal size aortic root and proximal ascending aorta. CONCLUSIONS 1. Normal left ventricular size, systolic function and wall thickness, with no regional wall motion abnormalities. Left ventricular ejection fraction is estimated at 60 %. 2. Normal right ventricular size and systolic function. 3. No significant valvular abnormality. 4. Normal pulmonary artery pressure. Dorita Escobar MD (Electronically Signed) Final Date: 29 November 2021 14:23 S
[2021-11-29 11:05] LABS: NT Pro B Type Natriuretic Pept 719 pg/mL (0-125)
[2021-11-29 11:08] LABS: SARS Covid-2 Antigen Negative (Negative)
[2021-11-29] MEDS: bumetanide 0.25 mg/mL SDV 10 mL 2 MG IVP (11:42)
[2021-11-29] MEDS: perflutren protein-a microsphr 0.22 mg/mL SDV 3 mL IV (12:23)
--- NOTE | 2021-11-29 16:05 | PC.NURSE ---
at approx 11:00 pt's sats decreased to low 80's.rt placed pt on heated high flow at 50% flow and 70%
[2021-11-29 17:12] LABS: ABG PCO2 33.9 mmHg (35-45); ABG PH Result 7.55 (7.35-7.45); Arterial Blood Gas Hematocrit 45.7 % (42-52); Base Excess ABG 7.1 mmol/L (-2.0-2.0); Blood Gas Allen Test Pos; Blood Gas Operator Identificat MONRO; Blood Gas Sample Site Radial, left; Blood Gas Sample Type Arterial; HCO3 ABG 29.5 mmol/L (22-26); Oxygen Device NC; PO2 ABG 46.1 mmHg (80.0-100.0)
[2021-11-29] MEDS: enoxaparin 120 mg/0.8 mL Syringe SUBCUT (18:52)
[2021-11-29] MEDS: bumetanide 0.25 mg/mL SDV 4 mL 1 MG IVP (21:32)
[2021-11-29] MEDS: budesonide 0.5 mg/2 mL Neb INHALATION (22:25)
[2021-11-30] VITALS (19 sets, daily range): BP systolic 125–142; BP diastolic 79–91; PULSE 59–77; RESP 18–25; TEMP 36.6–36.7; O2SAT 89–93
[2021-11-30] MEDS: cefepime 2,000 MG in sodium chloride 0.9% (plus) 50 ML 100 MG IV (01:39)
[2021-11-30 03:48] LABS: Basophils % 0.1 %; Hematocrit 43.9 % (42.0-52.0); Hemoglobin 14.1 g/dL (11.7-16.6); Lymphocytes # 0.5 10^3/uL (0.8-4.8); Lymphocytes % 5.2 %; Mean Corpuscular HGB Conc 32.1 g/dL (30.0-36.0); Mean Corpuscular Hemoglobin 28.8 pg (28.0-34.0); Mean Corpuscular Volume 89.8 fl (80-94); Mean Platelet Volume 10.7 fL (7.4-10.4); Monocytes # 0.5 10^3/uL (0.2-0.9); Neutrophils # 8.49 10^3/uL (1.8-7.7); Neutrophils % 88.3 %; Nucleated Red Blood Cells % 0 %; Platelet Count 311 10^3/cmm (130-400); Red Blood Count 4.89 10^6/uL (4.1-5.3); Red Cell Distribution Width 13.2 % (12.1-15.1); White Blood Count 9.6 10^3/uL (4.0-10.0)
[2021-11-30 04:08] LABS: Slide Review Slide Review Perform
[2021-11-30 04:14] LABS: Anion Gap 18.1 (5-19); Blood Urea Nitrogen 30 mg/dL (8-23); Calcium 8.5 mg/dL (8.5-10.5); Carbon Dioxide 28 mmol/L (22-29); Chloride 98 mmol/L (98-107); Glucose 185 mg/dL (65-115); Osmolality Calculated 301 mOsm/kg (285-295); Potassium 4.1 mmol/L (3.5-5.1); Sodium 140 mmol/L (136-145)
--- NOTE | 2021-11-30 07:12 | XRR_ITS ---
PROCEDURE INFORMATION: Exam: XR Chest Exam date and time: 11/30/2021 7:12 AM Age: 71 years old Clinical indication: Condition or disease; Lung condition and disease; Pulmonary edema; Status not specified; Additional info: Pul m oedema TECHNIQUE: Imaging protocol: XR of the chest. Views: 1 view. Total images: 1 COMPARISON: CR XR chest 1V portable [id number] 11/29/2021 9:32 AM FINDINGS: Lungs: Bilateral pulmonary opacities are again noted and appear unchanged. Pleural spaces: Unremarkable. No pleural effusion. No pneumothorax. Heart/Mediastinum: Heart is enlarged but stable when compared to the prior exam. Bones/joints: Osseous structures are unchanged from the prior exam. XR/XR chest 1V portable [id number] IMPRESSION: 1. Heart is enlarged but stable when compared to the prior exam. 2. Bilateral pulmonary opacities are again noted and appear unchanged.
[2021-11-30] MEDS: budesonide 0.5 mg/2 mL Neb INHALATION ×2 (08:30→20:45)
[2021-11-30] MEDS: ipratropium-albuterol 3 mL Neb INHALATION ×2 (08:30→20:45)
[2021-11-30 08:35] LABS: ABG PCO2 39.3 mmHg (35-45); ABG PH Result 7.52 (7.35-7.45); Base Excess ABG 8.9 mmol/L (-2.0-2.0); Blood Gas Allen Test Pos; Blood Gas Operator Identificat MONRO; Blood Gas Sample Site Radial, right; Blood Gas Sample Type Arterial; HCO3 ABG 32.4 mmol/L (22-26); Oxygen Device BIPAP
[2021-11-30] MEDS: potassium chloride ER 20 mEq Tablet 40 MEQ PO (09:15)
[2021-11-30] MEDS: FUROsemide 20 mg Tablet PO (09:15)
[2021-11-30] MEDS: enoxaparin 120 mg/0.8 mL Syringe SUBCUT ×2 (09:16→20:09)
--- NOTE | 2021-11-30 10:21 | PC.SOCIAL ---
Pg 2 IMM Explained to pt Pg 2 IMM. No questions voiced. Provided pt a copy. Initialed, dated, & timed a copy & placed in chart.
--- NOTE | 2021-11-30 10:55 | P.PN_ITS ---
Subjective Subjective: Interval history: Patient clinically is feeling better, However seems like now he is BiPAP dependent he becomes extremely hypoxic To take off the BiPAP, PO2 on ABG noted on 100% BiPAP settings Is on complaining of active shortness of breath chest pain and tachypnea He was very comfortable on BiPAP Cultures negative MRSA PCR negative Afebrile No leukocytosis Change to IV diuretics today Vitals/I&O/Wt Last Vital Signs Temp 97.8 F 11/30/21 04:00 Pulse 68 11/30/21 08:40 Resp 25 H 11/30/21 08:30 BP 134/79 11/30/21 07:42 Pulse Ox 91 11/30/21 08:39 11/29/21 11/30/21 11/30/21 22:59 06:59 14:59 Intake Total 290 / 580 50 / 630 Output Total 1350 / 1850 650 / 2500 Balance -1060 / -1270 -600 / -1870 Physical Exam Narrative: EXAM NARRATIVE: Patient was on BiPAP 100% FiO2 Did not complain active shortness of breath chest pain Nonfocal neuro exam Awake and alert Distended abdomen Signs of fluid overload Nonfocal neuro exam with EOMI and PERRLA No joint swelling Data : 11/30/21 03:21 11/30/21 03:21 A&P Assessment and plan (1) Hypokalemia: Status: Acute (2) Hypoxia: Status: Acute (3) Pneumonia: Status: Acute (4) COVID-19: Status: Acute Plan Worsening hypoxia related to superimposed bacterial infection with underlying pneumonia Currently on cefepime 2 g every 12 hours Currently on therapeutic regimen of Lovenox IV steroids 40 mg IV every 12 hours I will keep him on Bumex IV regimen Preserve ejection fraction on echo Cultures negative so far MRSA PCR negative Afebrile no leukocytosis Patient developed COVID-19 in starting of October Currently in regular diet, considering BiPAP dependency his nutrition will suffer now Full code Family updated Attestations Medical Necessity Statement*: High risk for intubation, Time Spent in Patient Care: 15 Coding Level of Care Code Acute 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
--- NOTE | 2021-11-30 10:58 | CTR_ITS ---
PROCEDURE INFORMATION: Exam: CTA Chest With Contrast Exam date and time: 11/30/2021 10:58 AM Age: 71 years old Clinical indication: Shortness of breath; Additional info: Hypoxia TECHNIQUE: Imaging protocol: Computed tomographic angiography of the chest with contrast. 3D rendering (Not supervised by radiologist): MIP and/or 3D reconstructed images were created by the technologist. Radiation optimization: All CT scans at this facility use at least one of these dose optimization techniques: automated exposure control; mA and/or kV adjustment per patient size (includes targeted exams where dose is matched to clinical indication); or iterative reconstruction. Contrast material: OMNI 350; Contrast volume: 72 ml; Contrast route: INTRAVENOUS (IV); COMPARISON: CT angio chest PE protcl [id number] 11/24/2021 10:43 PM RADIATION DOSE METRICS: Total DLP (mGy-cm): 543.68 FINDINGS: Pulmonary arteries: Normal. No pulmonary emboli. Aorta: Unremarkable. No aortic aneurysm. No aortic dissection. Lungs: Patchy bilateral pulmonary infiltrates primarily peripherally distributed. Pleural spaces: Unremarkable. No pneumothorax. No pleural effusion. Heart: Unremarkable. No cardiomegaly. No pericardial effusion. Lymph nodes: Unremarkable. No enlarged lymph nodes. Bones/joints: Unremarkable. No acute fracture. Soft tissues: Unremarkable. CT/CT angio chest PE protcl [id number] IMPRESSION: Bilateral pneumonia.Commonly reported imaging features of COVID-19 pneumonia are present. Other processes such as influenza pneumonia and organizing pneumonia, as can be seen with drug toxicity and connective tissue disease, can cause a similar imaging pattern. (Reference: [place]) REFERENCES: amadou Tariq al., Radiological Society of [place] Expert Consensus Statement on Reporting Chest CT Findings Related to COVID-19. Endorsed by the Society of Thoracic Radiology, the [place] [employer], and RSNA. Published January 18, 2020.
--- NOTE | 2021-11-30 11:00 | USR_ITS ---
PROCEDURE INFORMATION: Exam: US Duplex Lower Extremity Veins, Bilateral Exam date and time: 11/30/2021 11:00 AM Age: 71 years old Clinical indication: Swelling (edema) of limb; Lower extremity, right and lower extremity, left; Additional info: Swelling hypoxia TECHNIQUE: Imaging protocol: Real-time duplex ultrasound of the extremities with 2-D barbour scale, color Doppler flow and spectral waveform analysis with image documentation. Complete exam focused on the bilateral lower extremity veins. COMPARISON: CT Abdomen/Pelvis Renal [id number] 05/10/2016 6:17 PM FINDINGS: Right deep veins: Unremarkable. The common femoral, femoral, proximal profunda femoral and popliteal veins are patent without thrombus. Normal Doppler waveforms. Normal compressibility and/or augmentation response. Right superficial veins: Saphenofemoral junction is patent without thrombus. Left deep veins: Unremarkable. The common femoral, femoral, proximal profunda femoral and popliteal veins are patent without thrombus. Normal Doppler waveforms. Normal compressibility and/or augmentation response. Left superficial veins: Saphenofemoral junction is patent without thrombus. Soft tissues: Unremarkable. US/CV venous duplex [facility] [id number] IMPRESSION: No evidence of deep vein thrombosis.
[2021-11-30] MEDS: bumetanide 0.25 mg/mL SDV 10 mL 2 MG IVP (11:43)
[2021-11-30] MEDS: piperacillin-tazobactam 3.375 GM in sodium chloride 0.9% (plus) 50 ML IV ×2 (11:53→20:07)
[2021-11-30] MEDS: iohexol 350 mg/mL 100 mL Btl IV (15:01)
[2021-11-30 17:17] LABS: Lactate Dehydrogenase 402 U/L (135-225)
[2021-12-01] VITALS (18 sets, daily range): BP systolic 123–146; BP diastolic 72–86; PULSE 62–87; RESP 18–25; TEMP 36.4–36.8; O2SAT 88–93
[2021-12-01] MEDS: piperacillin-tazobactam 3.375 GM in sodium chloride 0.9% (plus) 50 ML IV ×3 (03:18→21:10)
[2021-12-01 03:41] LABS: Basophils % 0.2 %; Hematocrit 45.9 % (42.0-52.0); Lymphocytes # 0.5 10^3/uL (0.8-4.8); Mean Corpuscular HGB Conc 32.7 g/dL (30.0-36.0); Mean Corpuscular Hemoglobin 29.1 pg (28.0-34.0); Mean Corpuscular Volume 89.1 fl (80-94); Mean Platelet Volume 10.7 fL (7.4-10.4); Monocytes # 0.5 10^3/uL (0.2-0.9); Monocytes % 5.3 %; Neutrophils # 7.74 10^3/uL (1.8-7.7); Neutrophils % 85.8 %; Nucleated Red Blood Cells % 0 %; Platelet Count 326 10^3/cmm (130-400); Red Blood Count 5.15 10^6/uL (4.1-5.3)
[2021-12-01 03:52] LABS: ABG PCO2 35.7 mmHg (35-45); ABG PH Result 7.52 (7.35-7.45); Arterial Blood Gas Hematocrit 44.6 % (42-52); Base Excess ABG 6.4 mmol/L (-2.0-2.0); Blood Gas Sample Site Radial, left; Blood Gas Sample Type Arterial; HCO3 ABG 29.3 mmol/L (22-26); Oxygen Device BIPAP; PO2 ABG 54.2 mmHg (80.0-100.0)
[2021-12-01 03:58] LABS: Blood Urea Nitrogen 30 mg/dL (8-23); Calcium 8.3 mg/dL (8.5-10.5); Carbon Dioxide 27 mmol/L (22-29); Chloride 93 mmol/L (98-107); Glucose 280 mg/dL (65-115); Osmolality Calculated 296 mOsm/kg (285-295); Sodium 135 mmol/L (136-145)
[2021-12-01 03:59] LABS: Anion Gap 18.7 (5-19); Lactate Dehydrogenase 396 U/L (135-225); Potassium 3.7 mmol/L (3.5-5.1)
[2021-12-01 04:21] LABS: Slide Review Slide Review Perform
[2021-12-01] MEDS: budesonide 0.5 mg/2 mL Neb INHALATION ×2 (09:37→21:00)
[2021-12-01] MEDS: ipratropium-albuterol 3 mL Neb INHALATION ×2 (09:37→21:00)
[2021-12-01] MEDS: potassium chloride ER 20 mEq Tablet 40 MEQ PO (10:02)
[2021-12-01] MEDS: enoxaparin 120 mg/0.8 mL Syringe SUBCUT ×2 (10:03→21:11)
--- NOTE | 2021-12-01 10:39 | P.PN_ITS ---
Subjective Subjective: Interval history: Patient is stating that he is feeling fine no active shortness of breath however he wants to eat this morning, waiting to speak with his son regarding final goals of care for now he wants chest compressions but no intubation is listed as limited resuscitation in our system, will have family meeting today No overnight events He is feeling hungry Not complaining of active shortness of breath however he is on 100% FiO2 BiPAP mask, will give him a break from BiPAP to let him eat while on heated high flow Bactrim started 11/30 for worsening infiltrate on x-ray LDH 402 yesterday, today 396, afebrile Not a good candidate to be on Actemra or baricitinib for concern of secondary bacterial infection Vitals/I&O/Wt Last Vital Signs Temp 97.6 F 12/01/21 08:00 Pulse 67 12/01/21 09:37 Resp 18 12/01/21 09:37 BP 123/77 12/01/21 08:00 Pulse Ox 91 12/01/21 09:37 11/30/21 12/01/21 12/01/21 22:59 06:59 14:59 Intake Total 1387 / 1387 987 / 2374 50 / 50 Output Total 3700 / 3700 1850 / 5550 Balance -2313 / -2313 -863 / -3176 50 / 50 Physical Exam Narrative: EXAM NARRATIVE: Patient was laying comfortable on BiPAP and percent FiO2, he wants to eat S1, S2 Abdomen distended visceral obesity Lower extremity mild edema Awake and alert Nonfocal neuro exam Data : 12/01/21 03:00 12/01/21 03:00 A&P Assessment and plan (1) Hypokalemia: Status: Acute (2) Hypoxia: Status: Acute (3) Pneumonia: Status: Acute (4) COVID-19: Status: Acute Plan COVID-19 related hypoxia Bilateral infiltrates worsening ARDS severe category P to F ratio FiO2 requirement worsened currently on 100% FiO2 switch from heated high flow to BiPAP Patient does not want intubation in case of respiratory distress however when I discussed goals of care he said okay to chest compression, he would like to discuss further with his son, yesterday I talked with his daughter and . I did explain in detail what entails limited resuscitation, DNR/DNI and opting for chest compression without intubation would be futile effort in order to resuscitate him Procalcitonin unremarkable No fever or worsening of leukocytosis Organizing pneumonia? Currently he is on methylprednisone 40 mg IV every 12 hours, Bactrim was started on 11/30 for concern of PCP pneumonia, I do not have bronchioloalveolar lavage sample He does not have PE however his D-dimer was getting worse I have kept him on therapeutic dose of Lovenox 120 mg every 12 hours because of his worsening hypoxia Currently on empirical Zosyn coverage MRSA PCR negative Bactrim initiated yesterday watch for fluid overload every Bactrim bag has 5 and mL of fluid I have started him on Bumex 1 mg daily he did receive Bumex 2 mg IV push nd 3 mg of Bumex day before yesterday 11/29 Plan to keep him in negative balance Hypokalemia: Keep him on potassium 40 mEq daily Constipation: Dulcolax 10 mg p.o. daily as needed I have kept him on full liquid diet since the usage of BiPAP however he does not want to stay compliant with that and asking for food and diet to be advanced, I did allow him to eat consistent carb diet this morning Daughter and his updated their respecting wishes of Mr. 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
[2021-12-01] MEDS: bumetanide 1 mg Tablet PO (12:45)
[2021-12-02] VITALS (20 sets, daily range): BP systolic 113–140; BP diastolic 61–76; PULSE 66–85; RESP 17–26; TEMP 36.6; O2SAT 87–93
[2021-12-02 04:16] LABS: ABG PCO2 38.8 mmHg (35-45); ABG PH Result 7.48 (7.35-7.45); Base Excess ABG 5.1 mmol/L (-2.0-2.0); Blood Gas Sample Site Radial, left; Blood Gas Sample Type Arterial; HCO3 ABG 28.9 mmol/L (22-26); Oxygen Device NC; PO2 ABG 59.7 mmHg (80.0-100.0)
[2021-12-02 04:20] LABS: Basophils % 0.3 %; Hematocrit 45.8 % (42.0-52.0); Hemoglobin 15.2 g/dL (11.7-16.6); Lymphocytes # 0.7 10^3/uL (0.8-4.8); Lymphocytes % 6.9 %; Mean Corpuscular HGB Conc 33.2 g/dL (30.0-36.0); Mean Corpuscular Hemoglobin 29.9 pg (28.0-34.0); Mean Platelet Volume 10.6 fL (7.4-10.4); Monocytes # 0.7 10^3/uL (0.2-0.9); Monocytes % 6.9 %; Neutrophils % 81.1 %; Nucleated Red Blood Cells % 0 %; Platelet Count 267 10^3/cmm (130-400); Red Blood Count 5.09 10^6/uL (4.1-5.3); Red Cell Distribution Width 13.2 % (12.1-15.1); White Blood Count 10.4 10^3/uL (4.0-10.0)
[2021-12-02] MEDS: piperacillin-tazobactam 3.375 GM in sodium chloride 0.9% (plus) 50 ML IV ×3 (04:27→20:05)
[2021-12-02 04:48] LABS: Slide Review Slide Review Perform
[2021-12-02] MEDS: bumetanide 1 mg Tablet PO (08:56)
[2021-12-02] MEDS: enoxaparin 120 mg/0.8 mL Syringe SUBCUT ×2 (08:56→20:05)
[2021-12-02] MEDS: potassium chloride ER 20 mEq Tablet 40 MEQ PO (08:56)
[2021-12-02] MEDS: ipratropium-albuterol 3 mL Neb INHALATION ×3 (09:00→21:39)
[2021-12-02] MEDS: budesonide 0.5 mg/2 mL Neb INHALATION ×2 (09:00→21:39)
--- NOTE | 2021-12-02 10:14 | PC.CHAP ---
Pastoral Care Encounter/Spiritual Assessment Type of Contact [] Declined entertainer or variety artist visit [] Patient/Family/Request visit [] Outpatient visit [] Follow-up visit [] Physician referral [] Code/Alert [x] Routine visit [] Staff referral [] Actively dying [] Patient sleeping [] Family support [] [] Out of room [] Palliative care [] [] Receiving care in room [] Pre-surgical visit [] Trauma [] Long length of stay [] ICU visit [x] Other: patient not resting well... wanting to sleep Relational/Emotional Strength [] Patient feels connected with others/family/visitors/staff [] Distress [] Loneliness/isolation [] Abandonment Spirituality of Patient [] Person of Elise [] Attends Yazidi of their Elise [] Believes in Prayer [] Reads Bible or Lutheran materials [] There are Spiritual issues to be addressed Shower Enclosure Installer Interventions [x] Prayer [] Active listening [] Non-anxious presence [] Spiritual/emotional support [] Crisis/trauma care [] Spiritual counseling [] Bereavement support [] Provided bereavement packet [] Provided Bible/devotional materials [] Provided toy/stuffed animal, coloring book to patient or family member [] Provided Communion [] Anointing/[place] [] Salvation [x] Completed spiritual assessment [] Other: Impact on Illness or Injury [] Angry [] Fearful [] Anxious [] Often cries [] Exhaustion [] Unable to work [] Unable to attend yazdanism [] Unable to walk/stand [] Unable to read [] Unable to drive [] Unable to eat/drink [] Unable to sleep [] Unable to be with family [] Patient intubated [] Other: Summary Time spent with patient
[2021-12-02] MEDS: morphine 10 mg/0.5 mL oral liq UD 5 MG PO ×3 (10:19→20:05)
[2021-12-02 12:49] LABS: Blood Urea Nitrogen 23 mg/dL (8-23); Calcium 8.6 mg/dL (8.5-10.5); Carbon Dioxide 21 mmol/L (22-29); Chloride 95 mmol/L (98-107); Glucose 237 mg/dL (65-115); Magnesium 2.3 mg/dL (1.7-2.3); Osmolality Calculated 289 mOsm/kg (285-295); Phosphorus 2.1 mg/dL (2.5-4.5); Sodium 134 mmol/L (136-145)
[2021-12-02 12:55] LABS: Anion Gap 22.6 (5-19); Potassium 4.6 mmol/L (3.5-5.1)
--- NOTE | 2021-12-02 15:27 | P.PN_ITS ---
Subjective Subjective: Interval history: feels a little weak today Medications: Medication Review Details: not on corresponding albumin with diuretic Vitals/I&O/Wt Last Vital Signs Temp 98 F 12/02/21 03:08 Pulse 83 12/02/21 09:10 Resp 22 H 12/02/21 09:03 BP 140/76 12/02/21 03:08 Pulse Ox 89 L 12/02/21 09:03 12/02/21 12/02/21 12/02/21 06:59 14:59 22:59 Intake Total 827 / 2241 587 / 587 Balance 827 / 741 587 / 587 Physical Exam Narrative: EXAM NARRATIVE: Patient laying at about 30 degrees in bed. He appears comfortable. It is noted however he is on 95% FiO2 and 55% flow Cardiac heart is regular normal S1-S2 without murmurs clicks gallops or rubs Lungs diminished throughout with scattered crackles and rhonchi Abdomen obese soft nontender nondistended bowel sounds Extremities mild edema bilaterally Neurologic he is alert and oriented to person place time and situation. Data : 12/02/21 04:00 12/02/21 12:01 Micro: Microbiology 11/26/21 22:22 Blood Culture - Final Blood NO GROWTH AFTER 5 DAYS 11/26/21 22:10 Blood Culture - Final Blood NO GROWTH AFTER 5 DAYS A&P Assessment and plan (1) COVID-19: Patient with long Covid his Covid status was from a month ago he is here with worsening symptoms and currently on 95% heated high flow. Patient is DO NOT INTUBATE. Patient has received the standard Covid treatment already. Chest x- ray and CT still shows bilateral opacities that the radiologist says is consistent with Covid. However, he is being treated for bacterial pneumonia as well. Status: Acute (2) Pneumonia: As above Status: Acute (3) Hypoxia: I did speak with the nurse and later patient and family regarding breathing treatments to include Acapella nebs and incentive spirometer. I also advised sitting upright and using gravity to help with the hypoxia. He is to be out of bed to chair twice daily Status: Acute (4) Urinary retention with incomplete bladder emptying: I advise placing a Sanchez catheter since has incomplete bladder emptying and I am trying to diurese the patient as much as possible. He reluctantly agrees. Status: Acute Plan I rerounded on patient and met with patient's current , ex-, son, 2 daughters, and grandson. Their understanding was that perhaps I was changing the patient's current regimen. The only thing I added was Roxanol low-dose to help with feeling of breathlessness and dyspnea. He definitely appears a lot calmer this afternoon. Other questions were asked and answered to their satisfaction. I did explain that the patient is very ill and on the edge. However I said that overall he is stable from what I could tell over the last few days since today is my first day with him. He is not eating that much and we did discuss adding supplements as well. Attestations Medical Necessity Statement*: Patient with acute respiratory failure on high flow nasal cannula at 95% FiO2. Patient is critically ill need to continue aggressive measures Coding Level of Care Code Acute Dance Costume Designer for [facility] Fwd Exam Detailed Medical Decision Making High Complexity Diagnoses COVID-19 U07.1 Pneumonia J18.9 Hypoxia R09.02 Urinary retention with incomplete bladder emptying R33.9
--- NOTE | 2021-12-02 17:00 | PC.NURSE ---
Sanchez placement attempts X2 unable to get urine return attempted to contact provider patient not willing to let nursing try again
[2021-12-03] VITALS (19 sets, daily range): BP systolic 109–146; BP diastolic 67–84; PULSE 68–83; RESP 15–20; TEMP 36.4–36.8; O2SAT 89–93
--- NOTE | 2021-12-03 00:21 | PC.NURSE ---
Day shift nurse attempted amador catheter placement x2 and was unable to obtain placement.
[2021-12-03] MEDS: ipratropium-albuterol 3 mL Neb INHALATION ×2 (02:04→09:01)
[2021-12-03] MEDS: piperacillin-tazobactam 3.375 GM in sodium chloride 0.9% (plus) 50 ML IV ×3 (02:56→18:47)
[2021-12-03] MEDS: morphine 10 mg/0.5 mL oral liq UD 5 MG PO ×3 (02:56→20:31)
[2021-12-03] MEDS: enoxaparin 120 mg/0.8 mL Syringe SUBCUT ×2 (07:36→20:31)
[2021-12-03] MEDS: bumetanide 1 mg Tablet PO (08:01)
[2021-12-03] MEDS: potassium chloride ER 20 mEq Tablet 40 MEQ PO (08:01)
--- NOTE | 2021-12-03 08:50 | PC.NURSE ---
patient sat up in chair at beginning of shift for approximately 40min and wanted to lay back down up on rounding with the provider instruction received to have patient more up right in bed this nurse and resident nurse approached patient to reposition and patient stated why i just got comfortable i have not had a good nights rest this nurse explained the importance of sitting up more in the bed to open lung paiz and aid in healing of lungs patient verbalized understanding how ever renay only let us move him more up in the bed and right lateral HOB less than 30 degrees
[2021-12-03] MEDS: budesonide 0.5 mg/2 mL Neb INHALATION ×2 (09:01→20:16)
[2021-12-03] MEDS: phosphorus 250 mg Tablet PO ×3 (09:14→20:32)
--- NOTE | 2021-12-03 09:56 | PC.NURSE ---
patient ate 1 pudding cup will attempt ensure at next meal
--- NOTE | 2021-12-03 10:51 | PM.PN ---
Subjective Subjective: feeling better today. says he can't explain it but his breathing is easier. already up to chair for 30 min today. Vitals/I&O/Wt Last Vital Signs Temp 97.6 F 12/03/21 08:00 Pulse 72 12/03/21 09:01 Resp 17 12/03/21 09:01 BP 117/67 12/03/21 08:00 Pulse Ox 90 12/03/21 09:11 12/02/21 12/03/21 12/03/21 22:59 06:59 14:59 Intake Total 587 / 1654 887 / 2541 290 / 290 Output Total 300 / 300 550 / 850 Balance 287 / 1354 337 / 1691 290 / 290 Physical Exam Narrative: Patient laying on right side in bed. He appears comfortable. His color is better. He is on 100% FiO2 and 55% flow. Cardiac heart is regular normal S1-S2 without murmurs clicks gallops or rubs Lungs diminished throughout but mostly clear Abdomen obese soft nontender nondistended bowel sounds Extremities mild edema bilaterally Neurologic he is alert and oriented to person place time and situation. Data : 12/02/21 04:00 12/02/21 12:01 A&P Assessment and plan (1) COVID-19: Patient with persistent hypoxia s/p Covid a month ago. I have asked yesterday and today for RT to be more aggressive with weaning. I have just been updated that pt has been placed on 70%FIO2 and 45 L - markedly weaned...holding at 88-89%. Pt is more comfortable and I suspect the low dose roxanol is helping. Chest x-ray and CT still shows bilateral opacities that the radiologist says is consistent with Covid. ? fibrosis Status: Acute (2) Pneumonia: Treating for secondary bacterial infection. Status: Acute (3) Hypoxia: Continue nebs, Acapella, and incentive spirometer. Encourage sitting upright and using gravity to help with the hypoxia. He is to be out of bed to chair twice daily Status: Acute (4) Urinary retention with incomplete bladder emptying: Per pt, hx of prostate CA with XRT. RN unable to place amador after 2 attempts. Possible urology consult? Status: Acute Plan Still believe pt would be best served at an LTACH for prolonged weaning and aggressive pulmonary toliet and therapy. CM made referral. Attestations Medical Necessity Statement*: acute respiratory failure on high flow oxygen Coding Level of Care Code Acute Operations Manager Station for [facility] Fwd Diagnoses COVID-19 U07.1 Pneumonia J18.9 Hypoxia R09.02 Urinary retention with incomplete bladder emptying R33.9
[2021-12-04] VITALS (28 sets, daily range): BP systolic 127–145; BP diastolic 71–87; PULSE 66–100; RESP 16–18; TEMP 36.8; O2SAT 85–91
[2021-12-04] MEDS: morphine 10 mg/0.5 mL oral liq UD 5 MG PO ×3 (02:28→15:42)
[2021-12-04] MEDS: piperacillin-tazobactam 3.375 GM in sodium chloride 0.9% (plus) 50 ML IV ×2 (02:29→11:32)
[2021-12-04] MEDS: budesonide 0.5 mg/2 mL Neb INHALATION ×2 (07:58→20:33)
[2021-12-04] MEDS: ipratropium-albuterol 3 mL Neb INHALATION (07:58)
[2021-12-04] MEDS: enoxaparin 120 mg/0.8 mL Syringe SUBCUT ×2 (08:01→21:36)
[2021-12-04] MEDS: potassium chloride ER 20 mEq Tablet 40 MEQ PO (09:07)
[2021-12-04] MEDS: phosphorus 250 mg Tablet PO ×3 (09:07→21:37)
[2021-12-04] MEDS: bumetanide 1 mg Tablet PO (09:07)
--- NOTE | 2021-12-04 11:35 | PC.SOCIAL ---
IMM Update Pg. 2 of IMM updated. Patient resting in bed with eyes closed, did not disturb. Copy left at bedside.
--- NOTE | 2021-12-04 12:03 | PM.PN ---
Subjective Subjective: FiO2 70% heated high flow, patient will be transferred to LTAC once accepted No overnight events Patient is wanting to eat Vitals/I&O/Wt Last Vital Signs Temp 97.8 F 12/03/21 23:18 Pulse 74 12/04/21 11:03 Resp 18 12/04/21 11:03 BP 134/87 12/04/21 07:43 Pulse Ox 89 L 12/04/21 11:03 12/03/21 12/04/21 12/04/21 22:59 06:59 14:59 Intake Total 757 / 1944 837 / 2781 50 / 50 Output Total 675 / 1025 600 / 1625 Balance 82 / 919 237 / 1156 50 / 50 Physical Exam Narrative: Laying comfortably in his bed Heated high flow Abdomen soft No signs of edema Awake alert No active respite distress No conversational dyspnea Looks euvolemic Appropriate mood and affect Data : 12/02/21 04:00 12/02/21 12:01 A&P Assessment and plan (1) Urinary retention with incomplete bladder emptying: Status: Acute (2) Hypokalemia: Status: Acute (3) Hypoxia: Status: Acute (4) Pneumonia: Status: Acute (5) COVID-19: Status: Acute Plan COVID-19 related hypoxia Currently on heated high flow Will be transferred to LTAC Unstable to be discharged home Dr. Shrestha added phosphorus 3 times daily regimen along Roxanol which helped to improve his work of breathing with heated high flow I will de-escalate his IV steroids and change to p.o. DNR/DNI we discussed goals of care this morning as well Regular diet DVT prophylaxis therapeutic regimen however no DVT or signs of PE Attestations Medical Necessity Statement*: Continue medical management Coding Level of Care Code Acute Communications Department Chairperson for [facility] Fwd Diagnoses Urinary retention with incomplete bladder emptying R33.9 Hypokalemia E87.6 Hypoxia R09.02 Pneumonia J18.9 COVID-19 U07.1
[2021-12-05] VITALS (26 sets, daily range): BP systolic 107–131; BP diastolic 63–85; PULSE 70–96; RESP 18–21; TEMP 36.4–37; O2SAT 84–94
[2021-12-05] MEDS: levoFLOXacin 750 mg Tablet PO (06:35)
--- NOTE | 2021-12-05 08:00 | PC.NURSE ---
Pt has been having nosebleeding. Informed doctor if we can hold the lovenox 120 mg q12hrs order for this morning. Dr. Carmona telephone order to hold the lovenox for this morning dose.
[2021-12-05] MEDS: budesonide 0.5 mg/2 mL Neb INHALATION (08:38)
[2021-12-05] MEDS: ipratropium-albuterol 3 mL Neb INHALATION (08:38)
[2021-12-05] MEDS: potassium chloride ER 20 mEq Tablet 40 MEQ PO (08:54)
[2021-12-05] MEDS: phosphorus 250 mg Tablet PO (08:54)
[2021-12-05] MEDS: bumetanide 1 mg Tablet PO (08:54)
[2021-12-05] MEDS: predniSONE 20 mg Tablet PO (08:54)
--- NOTE | 2021-12-05 12:08 | PM.PN ---
Subjective Subjective: Patient is on 70% 50 L heated high flow wanted to use the bathroom, he was sitting at the bedside Has been noticing nosebleed secondary to dry nasal mucosa, DVT prophylaxis we will held Vitals/I&O/Wt Last Vital Signs Temp 98.3 F 12/05/21 04:00 Pulse 79 12/05/21 10:40 Resp 20 H 12/05/21 08:39 BP 110/63 12/05/21 10:40 Pulse Ox 86 L 12/05/21 10:40 12/04/21 12/05/21 12/05/21 22:59 06:59 14:59 Intake Total 425 / 1507 340 / 1847 897 / 897 Output Total 2130 / 2130 1230 / 3360 Balance -1705 / -623 -890 / -1513 897 / 897 Physical Exam Narrative: Patient is 70% 50 L, he was at the bedside wanted to use the bedroom sitting at the bedside Heated high flow No active shortness of breath No active chest pain Nonfocal exam 50 L 70% S1, S2 Euvolemic In good spirits Distended abdomen with obesity Mild rhonchi at the bases Data : 12/02/21 04:00 12/02/21 12:01 A&P Assessment and plan (1) Pneumonia: Status: Acute (2) Hypoxia: Status: Acute (3) COVID-19: Status: Acute Plan COVID-19 related hypoxia Heated high flow LTAC screening currently on 50% 70 L Able to ambulate to some extent it was able to go to the bathroom with assistance Continue levofloxacin empirical treatment Hypokalemia hypophosphatemia repleted Change Lovenox to DVT prophylactic regimen Steroids de-escalate to prednisone 20 mg, Continuing IV Bactrim it was started on 11/30 to finish 21 days, hypoxia did improve to some extent with initiation of IV Bactrim Check LDH tomorrow DNR/DNI Regular diet Attestations Medical Necessity Statement*: LTAC placement Time Spent in Patient Care: 10 minutes Coding Level of Care Code Acute Hammer Repairer for [facility] Fwd Diagnoses Pneumonia J18.9 Hypoxia R09.02 COVID-19 U07.1
[2021-12-05] MEDS: saline nasal spray 44mL Btl 1 SPRAY NASAL (13:15)
[2021-12-05 21:14] LABS: Glucose Point of Care 253 mg/dL (70-110)
[2021-12-05] MEDS: ondansetron 2 mg/ML SDV 2 mL 4 MG IVP (23:35)
[2021-12-06] VITALS (21 sets, daily range): BP systolic 110–138; BP diastolic 74–94; PULSE 74–98; RESP 14–26; TEMP 36.2–36.9; O2SAT 85–95
[2021-12-06] MEDS: morphine 10 mg/0.5 mL oral liq UD 5 MG PO ×2 (04:36→20:50)
[2021-12-06] MEDS: levoFLOXacin 750 mg Tablet PO (05:35)
[2021-12-06 07:17] LABS: Anion Gap 22.4 (5-19); Blood Urea Nitrogen 21 mg/dL (8-23); Calcium 8.5 mg/dL (8.5-10.5); Carbon Dioxide 26 mmol/L (22-29); Chloride 86 mmol/L (98-107); Glucose 146 mg/dL (65-115); Osmolality Calculated 274 mOsm/kg (285-295); Potassium 5.4 mmol/L (3.5-5.1); Sodium 129 mmol/L (136-145)
[2021-12-06 07:18] LABS: Creatinine Clr Calc Pharmacy 65.6924
[2021-12-06] MEDS: bumetanide 1 mg Tablet PO (08:50)
[2021-12-06] MEDS: predniSONE 20 mg Tablet PO (08:50)
[2021-12-06] MEDS: sodium polystyrene sulfonate 15 gm/60 mL Btl PO (08:50)
--- NOTE | 2021-12-06 12:17 | PM.PN ---
Subjective Subjective: Hyperkalemia, ALEC hyponatremia Patient is on 70% FiO2 heated high flow Not noting any active chest pain or shortness of breath Stating that last night he was experiencing worsening of his symptoms Vitals/I&O/Wt Last Vital Signs Temp 98.4 F 12/06/21 08:55 Pulse 79 12/06/21 09:24 Resp 20 H 12/06/21 09:24 BP 128/94 12/06/21 08:55 Pulse Ox 91 12/06/21 09:24 12/05/21 12/06/21 12/06/21 22:59 06:59 14:59 Intake Total 1074 / 2089 537 / 2626 118 / 118 Output Total 900 / 1100 400 / 1500 400 / 400 Balance 174 / 989 137 / 1126 -282 / -282 Physical Exam Narrative: Patient in supine in his bed No active chest pain or shortness of breath Saturating 90% on 70% FiO2 heated high flow Looks euvolemic EOMI, PERRLA Nonfocal neuro exam No audible stridor or wheezing Data : 12/02/21 04:00 12/06/21 06:40 A&P Assessment and plan (1) Hyperkalemia: Status: Acute (2) Hypoxia: Status: Acute (3) Pneumonia: Status: Acute (4) COVID-19: Status: Acute Plan For hyperkalemia discontinue potassium segmentation Discontinue Bactrim Patient looks euvolemic For ALEC will discontinue diuretics for now Continue steroids, currently on 70% heated high flow Awaiting placement to LTAC 1 bowel movement this morning No signs of obstructive uropathy I would like to watch him off diuretics for next 2 days We will give Kayexalate for hyperkalemia Attestations Medical Necessity Statement*: Awaiting LTAC placement Coding Level of Care Code Acute Esol Instructor for [facility] Diagnoses Hyperkalemia E87.5 Hypoxia R09.02 Pneumonia J18.9 COVID-19 U07.1
[2021-12-06] MEDS: enoxaparin 40 mg/0.4 mL Syringe SUBCUT (12:23)
--- NOTE | 2021-12-06 14:10 | PC.SOCIAL ---
IM follow up explained and copy provided. Patient verbalized understanding.
[2021-12-07] VITALS (15 sets, daily range): BP systolic 115–151; BP diastolic 79–95; PULSE 69–83; RESP 14–51; TEMP 36.7–37.1; O2SAT 88–96
[2021-12-07] MEDS: levoFLOXacin 750 mg Tablet PO (05:59)
--- NOTE | 2021-12-07 06:57 | PC.NURSE ---
recieved report. waiting for lab to come back to draw labs. pt resting comfortably with no signs of distress on bipap. vss.
[2021-12-07 07:47] LABS: Basophils % 0.3 %; Eosinophils # 0.1 10^3/uL (0.0-0.8); Eosinophils % 0.5 %; Hematocrit 43.8 % (42.0-52.0); Hemoglobin 14.3 g/dL (11.7-16.6); Lymphocytes # 0.9 10^3/uL (0.8-4.8); Lymphocytes % 7.8 %; Mean Corpuscular HGB Conc 32.6 g/dL (30.0-36.0); Mean Corpuscular Hemoglobin 29.2 pg (28.0-34.0); Mean Corpuscular Volume 89.6 fl (80-94); Mean Platelet Volume 10.6 fL (7.4-10.4); Monocytes # 0.5 10^3/uL (0.2-0.9); Monocytes % 4.7 %; Neutrophils # 9.66 10^3/uL (1.8-7.7); Nucleated Red Blood Cells % 0 %; Platelet Count 222 10^3/cmm (130-400); Red Blood Count 4.89 10^6/uL (4.1-5.3); White Blood Count 11.5 10^3/uL (4.0-10.0)
[2021-12-07 08:19] LABS: Blood Urea Nitrogen 22 mg/dL (8-23); Calcium 8.6 mg/dL (8.5-10.5); Carbon Dioxide 25 mmol/L (22-29); Chloride 92 mmol/L (98-107); Glucose 107 mg/dL (65-115); Osmolality Calculated 276 mOsm/kg (285-295); Sodium 131 mmol/L (136-145)
[2021-12-07] MEDS: predniSONE 20 mg Tablet PO (08:41)
--- NOTE | 2021-12-07 08:56 | XRR_ITS ---
PROCEDURE INFORMATION: Exam: XR Chest Exam date and time: 12/07/2021 8:56 AM Age: 71 years old Clinical indication: Shortness of breath; Additional info: Hypoxia TECHNIQUE: Imaging protocol: XR of the chest. Views: 1 view. COMPARISON: CR (CHEST, ) 11/30/2021 9:41 AM FINDINGS: Lungs: There are bilateral hazy interstitial pulmonary infiltrates which have improved since previous examination. Pleural spaces: Unremarkable. No pleural effusion. No pneumothorax. Heart/Mediastinum: Unremarkable. No cardiomegaly. Bones/joints: Unremarkable. XR/XR chest 1V portable [id number] IMPRESSION: Improving bilateral interstitial pulmonary infiltrates.
--- NOTE | 2021-12-07 11:34 | PM.TDS ---
Transfer Summary Providers Date of Admission: 11/27/21 02:29 Date of Discharge/Transfer: 12/07/21 Attending Provider at Admission: Te Aguilar MD Attending Provider at Transfer: Catherine Carmona MD Primary Care Provider: Papo Ramirez DO Transfer Plans: Anticipated date of transfer: 12/07/21. Diagnoses at Discharge Discharge Diagnosis (1) Hyperkalemia: Status: Acute (2) Hypoxia: Status: Acute (3) Pneumonia: Status: Acute (4) COVID-19: Status: Acute Reason for Visit Reason for Visit SOB on Oxygen Hospital Course Hospital Course Patient was admitted on 11/27. He contracted COVID-19 in starting of October this year, he was seen in the ER at the end of the month when he was discharged home with 2 L, he came back with worsening of hypoxia and respiratory failure. His FiO2 requirement has been getting worse, he is getting weaker, currently FiO2 requirement is 100% on BiPAP, he transitioned to heated high flow in order to eat, he does not want intubation, I did repeat his Covid antigen which is negative, LDH is extremely high, my concern is for PCP pneumonia, started Bactrim on 11/30, he did receive IV Bumex, Lovenox empirical Zosyn coverage, MRSA PCR negative, preserved ejection fraction on echo, his FiO2 requirement did improve however because of hyperkalemia and worsening creatinine I had to stop his Bactrim, he'll be discharged to long-term acute care on 12/07, he is on heated high flow 40 L, 65% FiO2. He did finish remdesivir and Decadron course, I have discontinued his steroids. He remained afebrile, sputum, blood culture & urine culture negative to date, Physical Exam Narrative: Patient in supine in his bed No active chest pain or shortness of breath Saturating 90% on 65% FiO2 heated high flow Looks euvolemic EOMI, PERRLA Nonfocal neuro exam No audible stridor or wheezing ? TS Data Studies Completed and Pending Pending at discharge Category Date Time Status XR chest 1V portable [id number] Routine Exams 12/07/21 08:56 Taken Sputum Culture and Gram Stain Routine Lab 12/07/21 00:58 Results Labs from last 24 hours 12/07/21 12/07/21 07:30 07:30 WBC 11.5 H RBC 4.89 Hgb 14.3 Hct 43.8 MCV 89.6 MCH 29.2 MCHC 32.6 RDW 13.0 Plt Count 222 MPV 10.6 H Neut % (Auto) 84.0 Lymph % (Auto) 7.8 Lake % (Auto) 4.7 Eos % (Auto) 0.5 Baso % (Auto) 0.3 Neut # (Auto) 9.66 H Lymph # (Auto) 0.9 Lake # (Auto) 0.5 Eos # (Auto) 0.1 Baso # (Auto) 0.0 Nucleated RBC % (auto) 0 Nucleated RBCs # 0.0 Sodium 131 L Potassium 5.0 Chloride 92 L Carbon Dioxide 25 Anion Gap 19.0 BUN 22 Creatinine 1.1 GFR Calculation Not Reportable Glucose 107 Calculated Osmolality 276 L Calcium 8.6 Completed Studies During Hospitalization Category Date Time Status CT chest wo con [id number] Routine Cat Scan 11/27/21 12:19 Completed CTA PE [CT angio chest PE protcl [id number]] Stat Cat Scan 11/30/21 10:58 Completed XR chest 1V portable [id number] Routine Exams 11/30/21 07:12 Completed XR chest 1V portable [id number] Stat Exams 11/26/21 21:18 Completed XR chest 1V portable [id number] Stat Exams 11/29/21 09:23 [place] [id number] Routine Ultrasound 11/30/21 11:00 Completed CV. echo wo/w contrast [id number] Routine Ultrasound 11/29/21 10:34 Completed Laboratory Last Values WBC 11.5 10^3/uL (4.0-10.0) H 12/07/21 07:30 RBC 4.89 10^6/uL (4.1-5.3) 12/07/21 07:30 Hgb 14.3 g/dL (11.7-16.6) 12/07/21 07:30 Hct 43.8 % (42.0-52.0) 12/07/21 07:30 MCV 89.6 fl (80-94) 12/07/21 07:30 MCH 29.2 pg (28.0-34.0) 12/07/21 07:30 MCHC 32.6 g/dL (30.0-36.0) 12/07/21 07:30 RDW 13.0 % (12.1-15.1) 12/07/21 07:30 Plt Count 222 10^3/cmm (130-400) 12/07/21 07:30 MPV 10.6 fL (7.4-10.4) H 12/07/21 07:30 Neut % (Auto) 84.0 % 12/07/21 07:30 Lymph % (Auto) 7.8 % 12/07/21 07:30 Lake % (Auto) 4.7 % 12/07/21 07:30 Eos % (Auto) 0.5 % 12/07/21 07:30 Baso % (Auto) 0.3 % 12/07/21 07:30 Neut # (Auto) 9.66 10^3/uL (1.8-7.7) H 12/07/21 07:30 Lymph # (Auto) 0.9 10^3/uL (0.8-4.8) 12/07/21 07:30 Lake # (Auto) 0.5 10^3/uL (0.2-0.9) 12/07/21 07:30 Eos # (Auto) 0.1 10^3/uL (0.0-0.8) 12/07/21 07:30 Baso # (Auto) 0.0 10^3/uL (0.0-0.1) 12/07/21 07:30 Nucleated RBC % (auto) 0 % 12/07/21 07:30 Nucleated RBCs # 0.0 /100WBC 12/07/21 07:30 D-Dimer Cancelled 11/26/21 21:50 Specimen Type Arterial 12/02/21 04:03 Sample Site Radial, left 12/02/21 04:03 ABG pH 7.48 (7.35-7.45) H 12/02/21 04:03 ABG pCO2 38.8 mmHg (35-45) 12/02/21 04:03 ABG pO2 59.7 mmHg (80.0-100.0) L 12/02/21 04:03 ABG HCO3 28.9 mmol/L (22-26) H 12/02/21 04:03 ABG O2 Saturation 90.3 11/27/21 09:12 ABG Base Excess 5.1 mmol/L (-2.0-2.0) H 12/02/21 04:03 Femi Test N/a 12/02/21 04:03 A-a O2 Gradient 22.8 mmHg (5-10) H 11/27/21 09:12 Hematocrit 43.0 % (42-52) 12/02/21 04:03 Hgb O2 Saturation 89.0 % (95-100) L 11/27/21 09:12 Carboxyhemoglobin 0.7 %THgb (0.4-20.1) 11/27/21 09:12 Methemoglobin 0.8 % (0.4-1.5) 11/27/21 09:12 Total Hemoglobin 14.6 g/dL (14-18) 11/27/21 09:12 Sodium 136.0 mmol/L (131-143) 11/27/21 09:12 Potassium 3.2 mmol/L (3.5-5.0) L 11/27/21 09:12 Glucose 163.0 mg/dL (70-115) H 11/27/21 09:12 Ionized Calcium 1.1 mmol/L (1.1-1.4) 11/27/21 09:12 O2 Delivery Device Nc 12/02/21 04:03 O2 Liters/Min 55.0 % 12/02/21 04:03 FiO2 100.0 % 12/02/21 04:03 PEEP 8.0 cmH20 12/01/21 03:41 Chemical Project Engineer ID [email or web address] 12/02/21 04:03 Sodium 131 mmol/L (136-145) L 12/07/21 07:30 Potassium 5.0 mmol/L (3.5-5.1) 12/07/21 07:30 Chloride 92 mmol/L (98-107) L 12/07/21 07:30 Carbon Dioxide 25 mmol/L (22-29) 12/07/21 07:30 Anion Gap 19.0 (5-19) 12/07/21 07:30 BUN 22 mg/dL (8-23) 12/07/21 07:30 Creatinine 1.1 mg/dL (0.7-1.2) 12/07/21 07:30 GFR Calculation Not Reportable 12/07/21 07:30 Glucose 107 mg/dL (65-115) 12/07/21 07:30 POC Glucose 253 mg/dL (70-110) H 12/05/21 21:09 Calculated Osmolality 276 mOsm/kg (285-295) L 12/07/21 07:30 Lactic Acid 1.5 mmol/L (0.5-2.2) 11/26/21 22:52 Calcium 8.6 mg/dL (8.5-10.5) 12/07/21 07:30 Phosphorus 2.1 mg/dL (2.5-4.5) L 12/02/21 12:01 Magnesium 2.3 mg/dL (1.7-2.3) 12/02/21 12:01 Total Bilirubin 0.6 mg/dL (0.15-1.2) 11/26/21 22:35 AST 36 U/L (0-40) 11/26/21 22:35 ALT 29 U/L (0-41) 11/26/21 22:35 Alkaline Phosphatase 57 IU/L (40-130) 11/26/21 22:35 Lactate Dehydrogenase 396 U/L (135-225) H 12/01/21 03:00 C-Reactive Protein 53.5 mg/L (0.0-4.9) H 11/26/21 22:35 NT-Pro-B Natriuret Pep 719 pg/mL (0-125) H 11/29/21 03:19 Total Protein 7.3 g/dL (6.6-8.7) 11/26/21 22:35 Albumin 3.6 g/dL (3.5-5.2) 11/26/21 22:35 Globulin 3.7 g/dL (1.3-4.6) 11/26/21 22:35 Procalcitonin 0.05 ng/mL (0-0.5) 11/29/21 03:19 Vancomycin Trough 7.3 ug/mL (10-15) L 11/28/21 19:50 SARS-CoV-2 Ag (Rapid) Negative (Negative) 11/29/21 Unknown Radiology Impressions Chest CT 11/27/21 12:19 IMPRESSION: 1. Diffuse bilateral hazy groundglass infiltrates more prominent in the perihilar regions bilaterally have progressed compared to November 24, 2021. 2. No mediastinal or hilar lymphadenopathy. Mild perihilar bronchovascular thickening. 3. No other significant changes compared to previous. Chest CTA 11/30/21 10:58 IMPRESSION: Bilateral pneumonia.Commonly reported imaging features of COVID-19 pneumonia are present. Other processes such as influenza pneumonia and organizing pneumonia, as can be seen with drug toxicity and connective tissue disease, can cause a similar imaging pattern. (Reference: Benito) REFERENCES: Benito Joaquin et al., Radiological Society of [place] Expert Consensus Statement on Reporting Chest CT Findings Related to COVID-19. Endorsed by the Society of Thoracic Radiology, the [employer], and RSNA. Published January 18, 2020. Venous Duplex 11/30/21 11:00 IMPRESSION: No evidence of deep vein thrombosis. Recent Clincial Data Last Vital Signs Temp 98.4 F 12/07/21 08:00 Pulse 77 12/07/21 08:00 Resp 23 H 12/07/21 08:00 BP 120/81 12/07/21 08:00 Pulse Ox 88 L 12/07/21 08:00 Vital Signs Temp Pulse Resp BP Pulse Ox 12/07/21 08:00 98.4 F 77 23 H 120/81 88 L 12/07/21 06:03 81 14 129/95 93 12/07/21 06:00 83 18 93 12/07/21 05:54 69 12/07/21 05:34 76 94 12/07/21 05:01 73 17 146/94 94 12/07/21 04:01 75 16 126/81 93 12/07/21 03:01 75 17 127/85 91 12/07/21 02:00 75 15 117/86 93 12/07/21 01:15 75 94 12/07/21 01:00 78 14 115/81 93 12/07/21 00:00 98.1 F 74 14 119/79 93 Intake & Output/Weight 12/05/21 12/06/21 12/07/21 12/08/21 06:59 06:59 06:59 06:59 Intake Total 1847 / 1847 2626 / 2626 118 / 118 100 / 100 Output Total 3360 / 3360 1500 / 1500 1200 / 1200 Balance -1513 / -1513 1126 / 1126 -1082 / -1082 100 / 100 Vitals Last Vital Signs Temp 98.4 F 12/07/21 08:00 Pulse 77 12/07/21 08:00 Resp 23 H 12/07/21 08:00 BP 120/81 12/07/21 08:00 Pulse Ox 88 L 12/07/21 08:00 TS Medications Medications Acetaminophen (Acetaminophen 325 Mg Tablet) 650 mg PO Q6H PRN PRN Reason: Mild/Mod Pain Or Temp >/= 101 Albuterol/Ipratropium (Ipratropium-Albuterol 3 Ml Neb) 3 ml INHALATION Q6H PRN PRN Reason: SHORTNESS OF BREATH Last Admin: 12/05/21 08:38 Dose: 3 ml Documented by: Benzonatate (Benzonatate 100 Mg Capsule) 100 mg PO TID PRN PRN Reason: COUGH Bisacodyl (Bisacodyl 5 Mg Tablet) 10 mg PO DAILY PRN; Protocol PRN Reason: Constipation (see protocol) Enoxaparin Sodium (Enoxaparin 40 Mg/0.4 Ml Syringe) 40 mg SUBCUT Q24H ADRIANA Last Admin: 12/06/21 12:23 Dose: 40 mg Documented by: Levofloxacin (Levofloxacin 750 Mg Tablet) 750 mg PO DAILY@0600 [facility]; Protocol Last Admin: 12/07/21 05:59 Dose: 750 mg Documented by: Morphine Sulfate (Morphine 10 Mg/0.5 Ml Oral Liq Ud) 5 mg PO Q6H ADRIANA Last Admin: 12/07/21 08:38 Dose: Not Given Documented by: Ondansetron HCl (Ondansetron 2 Mg/Ml Sdv 2 Ml) 4 mg IVP Q8H PRN PRN Reason: vomiting, or N/V if npo Last Admin: 12/05/21 23:35 Dose: 4 mg Documented by: Prednisone (Prednisone 20 Mg Tablet) 20 mg PO DAILY ADRIANA Last Admin: 12/07/21 08:41 Dose: 20 mg Documented by: Sodium Chloride (Saline Nasal [place] 44ml Btl) 1 spray NASAL Q4H PRN PRN Reason: DRYNESS Last Admin: 12/05/21 13:15 Dose: 1 spray Documented by: Discontinued Medications Albuterol/Ipratropium (Ipratropium-Albuterol 3 Ml Neb) 3 ml INHALATION ONCE ONE Stop: 11/26/21 21:49 Last Admin: 11/27/21 01:46 Dose: Not Given Documented by: Budesonide (Budesonide 0.5 Mg/2 Ml Neb) 0.5 mg INHALATION BID.RESPIRATORY ADRIANA Last Admin: 12/05/21 08:38 Dose: 0.5 mg Documented by: Bumetanide (Bumetanide 0.25 Mg/Ml Sdv 10 Ml) 2 mg IVP ONCE ONE Stop: 11/29/21 10:33 Last Admin: 11/29/21 11:42 Dose: 2 mg Documented by: Bumetanide (Bumetanide 0.25 Mg/Ml Sdv 10 Ml) 1 mg IVP ONCE ONE Stop: 11/29/21 19:46 Last Admin: 11/29/21 21:17 Dose: Not Given Documented by: Bumetanide (Bumetanide 0.25 Mg/Ml Sdv 4 Ml) 1 mg IVP ONCE ONE Stop: 11/29/21 21:18 Last Admin: 11/29/21 21:32 Dose: 1 mg Documented by: Bumetanide (Bumetanide 0.25 Mg/Ml Sdv 10 Ml) 2 mg IVP ONCE ONE Stop: 11/30/21 10:57 Last Admin: 11/30/21 11:43 Dose: 2 mg Documented by: Bumetanide (Bumetanide 1 Mg Tablet) 1 mg PO DAILY [facility] Last Admin: 12/06/21 08:50 Dose: 1 mg Documented by: Dexamethasone (Dexamethasone 10 Mg/Ml Inj) 10 mg IVP ONCE ONE Stop: 11/26/21 21:49 Last Admin: 11/26/21 21:59 Dose: 10 mg Documented by: Enoxaparin Sodium (Enoxaparin 40 Mg/0.4 Ml Syringe) 40 mg SUBCUT Q24H [facility] Last Admin: 11/29/21 01:28 Dose: 40 mg Documented by: Enoxaparin Sodium (Enoxaparin 120 Mg/0.8 Ml Syringe) 120 mg SUBCUT Q12H [facility] Enoxaparin Sodium (Enoxaparin 120 Mg/0.8 Ml Syringe) 120 mg SUBCUT Q12H [facility] Last Admin: 12/06/21 09:32 Dose: Not Given Documented by: Furosemide (Furosemide 20 Mg Tablet) 20 mg PO DAILY@0800 [facility] Last Admin: 11/30/21 09:15 Dose: 20 mg Documented by: Ceftriaxone Sodium 1,000 mg/ (Sodium Chloride) 50 mls @ 100 mls/hr IV ONCE ONE; Protocol Stop: 11/26/21 22:58 Last Infusion: 11/27/21 04:57 Dose: Infused Documented by: Azithromycin 500 mg/ Sodium (Chloride) 250 mls @ 250 mls/hr IV ONCE ONE; Protocol Stop: 11/26/21 23:28 Last Infusion: 11/27/21 04:56 Dose: Infused Documented by: Cefepime HCl 2,000 mg/ Sodium (Chloride) 50 mls @ 100 mls/hr IV Q8H ADRIANA; Protocol Last Admin: 11/30/21 11:17 Dose: Not Given Documented by: Vancomycin HCl 1,000 mg/ (Sodium Chloride) 250 mls @ 250 mls/hr IV Q12H ADRIANA Last Infusion: 11/28/21 09:59 Dose: Infused Documented by: Vancomycin/PEG/NADA/Lysine/Water (Vancocin) 1,250 mg in 250 mls @ 250 mls/hr IV Q12H ADRIANA Last Admin: 11/30/21 07:25 Dose: Not Given Documented by: Cefepime HCl 2,000 mg/ Sodium (Chloride) 50 mls @ 100 mls/hr IV Q12H ADRIANA; Protocol Piperacillin Sod/Tazobactam (Sod 3.375 gm/ Sodium Chloride) 50 mls @ 12.5 mls/hr IV Q8H [facility]RIANA; Protocol Last Infusion: 12/04/21 13:29 Dose: Infused Documented by: Trimethoprim/Sulfamethoxazole (596 mg/ Dextrose) 537.25 mls @ 500 mls/hr IV Q8H ADRIANA Trimethoprim/Sulfamethoxazole (592 mg/ Dextrose) 537 mls @ 500 mls/hr IV Q8H ADRIANA Last Admin: 12/06/21 13:56 Dose: Not Given Documented by: Iohexol (Iohexol 350 Mg/Ml 100 Ml Btl) 0 ml IV ONCE ONE Stop: 11/30/21 15:01 Last Admin: 11/30/21 15:01 Dose: 72 ml Documented by: Levofloxacin (Levofloxacin 750 Mg Tablet) 750 mg PO DAILY@0600 [facility]; Protocol Methylprednisolone Sodium Succinate (Methylprednisolone Sod Succ 40 Mg/Ml Inj) 40 mg IVP Q12H ADRIANA Last Admin: 12/04/21 09:06 Dose: 40 mg Documented by: Perflutren Protein Type A Microsphe (Perflutren Protein-A Microsphr 0.22 Mg/Ml Sdv 3 Ml) 0 ml IV ONCE ONE Stop: 11/29/21 11:25 Last Admin: 11/29/21 12:23 Dose: 3 ml Documented by: Potassium Chloride (Potassium Chloride Er 20 Meq Tablet) 40 meq PO DAILY [facility] Last Admin: 12/06/21 09:31 Dose: Not Given Documented by: Potassium Phosphate (Phosphorus 250 Mg Tablet) 250 mg PO TID [facility] Last Admin: 12/05/21 08:54 Dose: 250 mg Documented by: Prednisone (Prednisone 20 Mg Tablet) 40 mg PO DAILY [facility] Last Admin: 11/28/21 08:11 Dose: 40 mg Documented by: Sodium Polystyrene Sulfonate (Sodium Polystyrene Sulfonate 15 Gm/60 Ml Btl) 15 gm PO ONCE ONE Stop: 12/06/21 07:35 Last Admin: 12/06/21 08:50 Dose: 15 gm Documented by: Allergies No Known Allergies Allergy (Verified 11/24/21 19:55) Home Medications aspirin 81 mg chewable tablet 81 mg PO DAILY 11/27/21 [History Confirmed 11/27/21] cholecalciferol (vitamin D3) 50 mcg (2,000 unit) capsule (Vitamin D3) 50 mcg PO DAILY 11/27/21 [History Confirmed 11/27/21] cyclobenzaprine 10 mg tablet 10 mg PO TID PRN 11/27/21 [History Confirmed 11/27/21] losartan 100 mg tablet 50 mg PO DAILY 11/27/21 [History Confirmed 11/27/21] omega 5-wwu-euf-fish oil 1,000 mg (120 mg-180 mg) capsule (Fish Oil) 1 cap PO BID 11/27/21 [History Confirmed 11/27/21] rosuvastatin 10 mg tablet (Crestor) 5 mg PO DAILY 11/27/21 [History Confirmed 11/27/21] Discharge Plan Discharge Patient Disposition: er [facility] Condition: Stable Prescriptions: Continued cyclobenzaprine 10 mg Tablet 10 mg PO TID PRN (Reason: Muscle Spasm) 0RF aspirin 81 mg Tablet,Chewable 81 mg PO DAILY 0RF losartan 100 mg Tablet 50 mg PO DAILY 0RF Crestor 10 mg Tablet 5 mg PO DAILY 0RF Vitamin D3 50 mcg (2,000 unit) Capsule 50 mcg PO DAILY 0RF Fish Oil 1,000 mg (120 mg-180 mg) Capsule 1 cap PO BID 0RF Discontinued hydrochlorothiazide 25 mg Tablet 25 mg PO DAILY 0RF naproxen 500 mg Tablet 500 mg PO BID PRN (Reason: Pain) 0RF Discharge Orders: Discharge Order (Routine); Ordered 12/07/21 Ordered By: Catherine Carmona Transfer Out of Facility (Order); Ordered 12/07/21 Ordered By: Catherine Carmona Referrals: Papo Ramirez DO [Primary Care Provider] - Discharge Diet: Diabetic Discharge Activity: As per PT/OT instructions Transfer Attestations Time Spent in Transfer Care: less than 30 min Quality Metrics Clinical Quality Measures [ No reported AMI, CVA or VTE this stay] Coding Level of Care Code Acute Clark Driver for Chg Fwd Diagnoses Hyperkalemia E87.5 Hypoxia R09.02 Pneumonia J18.9 COVID-19 U07.1
[2021-12-07] MEDS: enoxaparin 40 mg/0.4 mL Syringe SUBCUT (12:13)
--- NOTE | 2021-12-07 15:43 | PC.NURSE ---
family brought a large green duffel bag from home for patient to take with him to [facility]. Bag was not opened while in the hospital and was sent on the gurney with the patient and ambulance crew.
--- NOTE | 2021-12-07 16:03 | PC.NURSE ---
[facility] Report called to Alfredo louis sup. Verified acceptance and bed availability. Pt transported via ambulance on non rebreather. vss, no complaints of sob or discomfort from patient. Verbalized understanding of poc with and sons at bedside. Pt left via gurney with bag of personal belongings brought in by . piv left in place per request of receiving facility.
== END 2021-12-07 13:35 | DRG 177 ==
LOC: ER 11-27 01:53 → ER IP 11-27 07:10 → CSU 11-27 16:48
PROVIDERS: Internal Medicine; Admitting Provider Internal Medicine; Emergency Provider Emergency Medicine; PCP Emergency Medicine Emergency Medical Services; Visit Provider Internal Medicine
DX: B59 Pneumocystosis (principal); J80 Acute respiratory distress syndrome; N17.9 Acute kidney failure, unspecified; U09.9 Post COVID-19 condition, unspecified; K59.00 Constipation, unspecified; R33.9 Retention of urine, unspecified; E83.39 Other disorders of phosphorus metabolism; E87.6 Hypokalemia; E87.5 Hyperkalemia; Z66 Do not resuscitate
CPT/HCPCS: 36415; 36416; 36600; 71045; 71250; 71275; 80048; 80051; 80053; 80202; 82330; 82803; 82805; 82962; 83605; 83615; 83735; 83880; 84100; 84145; 85025; 86140; 86403; 87040; 87070; 87077; 87106; 87186; 87205; 87426; 87449; 87641; 93005; 93970; 94640; 94660; 94664; 96365; 96367; 96372; 96375; 97110; 97161; 97530; 99285; C8929; J0456; J0692; J0696; J1100; J1650; J2405; J2543; J2920; J3370; J3490; J7050; J7512; J7626; Q9956; Q9967

== ENCOUNTER 2022-06-10 12:02 | Outpatient (CLI) | payer OTHER, SELFPAY ==
--- NOTE | 2022-06-10 12:17 | USCV_ITS ---
Fabien Rob Age: 72 Gender: M : 1950 Exam Date: 06/10/2022 12:26 Ordering Phys: Papo Ramirez DO Technologist: KRISTINE [place]am [place] [facility] [place]: AAA screening. Htn, hyperlipidemia HISTORY: Diameter (cm) AP x Transverse x Length Velocity (cm/s) Waveform Prox Aorta: 2.06 x 2.26 x 85.50 Biphasic Mid Aorta: 1.53 x 2.22 x 63.00 Biphasic Distal Aorta: 1.97 x 2.11 x 67.70 Biphasic Right Iliac Prox: 1.00 x 1.09 x 79.90 Biphasic Left Iliac Prox: 0.95 x 1.33 x 78.00 Biphasic Stent Prox Landing x x Aneurysmal Sac Max x x Lt Lat Sac Dim Rt Lat Sac Dim Stent Dist Landing x x Right Iliac Stent x x Left Iliac Stent x x Right Renal Art Left Renal Art FINDINGS: Normal abdominal aortic dimensions. Normal proximal, iliac artery dimensions. Normal Doppler flow velocities. CONCLUSIONS 1. Normal abdominal aortic dimensions with no evidence of aneurysm. 2. Normal proximal, iliac artery dimensions with no evidence of any stenosis or aneurysm No similar previous studies are available for comparison Dr Oma Aguayo MD [facility] (Electronically Signed) Final Date: 10 June 2022 20:37 S
== END 2022-06-10 12:03 | disposition home or self-care (01) ==
LOC: RAD 12:03
PROVIDERS: PCP Emergency Medicine Emergency Medical Services; Visit Provider Emergency Medicine Emergency Medical Services
DX: Z13.6 Encounter for screening for cardiovascular disorders (principal); I10 Essential (primary) hypertension; E78.5 Hyperlipidemia, unspecified
CPT/HCPCS: 76706